=== PATIENT | male | born 1960 | race Caucasian/White ===

== ENCOUNTER 2016-07-09 21:47 | Inpatient (IN) | payer OTHER ==
[2016-07-09] MEDS ORDERED: HYDROmorphONE/DILAUDID 1 MG/ML SYR ONE (21:58)
[2016-07-09] MEDS ORDERED: HYDROmorphONE/DILAUDID 1 MG/ML SYR IVP ONE ×3 (22:04→23:31)
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
[2016-07-09] MEDS ORDERED: NS 1,000 ML IV ONE ×2 (22:26→23:30)
[2016-07-09] MEDS ORDERED: ONDANSETRON 4 MG/2 ML VIAL IVP ONE (22:26)
[2016-07-09 22:31] LABS: % IMMATURE GRANULYOCYTES 0.4 % (0.0-1.1); ABSOLUTE IMMATURE GRANULOCYTES 0.02 10^3/uL (0.00-0.10); ADD DIFF? NO; ADD MORPH? NO; ADD SCAN? NO; ATYPICAL LYMPHOCYTE FLAG 10 (0-99); FRAGMENT RBC FLAG 0 (0-99); HEMATOCRIT 38.7 % (40.0-51.0); HEMOGLOBIN 13.9 g/dL (13.7-17.5); LEFT SHIFT FLG 0 (0-99); LIPEMIA HEMOLYSIS FLAG 90 (0-99); MEAN CELL HEMOGLOBIN 29.3 pg (27.9-34.1); MEAN CELL HEMOGLOBIN CONCENTR. 35.9 g/dL (32.4-36.7); MEAN CELL VOLUME 81.6 fL (81.5-99.8); MEAN PLATELET VOLUME 9.5 fL (8.7-11.7); PLATELET CLUMPS FLAG 10 (0-99); PLATELET COUNT 262 10^3/uL (150-400); RED BLOOD CELL COUNT 4.74 10^6/uL (4.40-6.38); RED CELL DISTRIBUTION WIDTH 13.7 % (11.5-15.2)
[2016-07-09 22:39] LABS: ALANINE AMINOTRANSFERASE 40 IU/L (21-72); ALBUMIN 3.8 g/dL (3.5-5.0); ALKALINE PHOSPHATASE 71 IU/L (38-126); ANION GAP 10 mEq/L (8-16); ASPARTATE AMINOTRANSFERASE 26 IU/L (17-59); BILIRUBIN,TOTAL 0.5 mg/dL (0.1-1.4); BILIRUBIN-CONJUGATED 0.4 mg/dL (0.0-0.5); BILIRUBIN-UNCONJUGATED 0.1 mg/dL (0.0-1.1); CALCIUM 9.3 mg/dL (8.5-10.4); CARBON DIOXIDE 20 mEq/l (22-31); CHLORIDE 104 mEq/L (97-110); CREATININE 0.8 mg/dL (0.7-1.3); GLOMERULAR FILTRATION RATE > 60; GLUCOSE 109 mg/dL (70-100); POTASSIUM 3.8 mEq/L (3.5-5.2); SODIUM 134 mEq/L (134-144); TOTAL PROTEIN 6.4 g/dL (6.3-8.2)
[2016-07-09 22:40] LABS: INR 1.09 (0.83-1.16)
[2016-07-09 22:41] LABS: APTT 29.2 SEC (23.0-38.0)
[2016-07-09] MEDS ORDERED: IOPAMIDOL (ISOVUE-300) 100 ML BTL ONE (22:43)
[2016-07-09 22:50] LABS: TROPONIN I < 0.012 ng/mL (0-0.034)
[2016-07-09 22:59] LABS: COLOR YELLOW; LEUKOCYTE ESTERASE,URINE NEGATIVE (NEGATIVE); NITRITE,URINE NEGATIVE (NEGATIVE)
--- NOTE | 2016-07-09 23:04 | CPEKG ---
Heart Rate: 81 RR Interval: 741 P-R Interval: 176 QRSD Interval: 106 QT Interval: 384 QTC Interval: 446 P [place]: 69 QRS [place]: 50 T Wave [place]: 51 EKG Severity - ABNORMAL ECG - EKG Impression: SINUS RHYTHM EKG Impression: INCOMPLETE RIGHT BUNDLE BRANCH BLOCK EKG Impression: BORDERLINE ST ELEVATION, INFERIOR LEADS Electronically Signed By: Enrike Sterling 10-Jul-2016 06:55:03
[2016-07-09] MEDS ORDERED: LORazepam 2 MG/ML INJ IVP ONE (23:47)
[2016-07-10] MEDS ORDERED: KETOROLAC 30 MG/1 ML SDV ONE (00:20)
[2016-07-10] MEDS ORDERED: KETOROLAC 30 MG/1 ML SDV IVP ONE (00:37)
[2016-07-10] MEDS ORDERED: ONDANSETRON 4 MG/2 ML VIAL IVP PRN (00:38)
[2016-07-10] MEDS ORDERED: LORazepam 2 MG/ML INJ IVP PRN (00:38)
[2016-07-10] MEDS ORDERED: D5W 1/2 NS W/ 20 KCl/L 1,000 ML IV SCH (00:45)
--- NOTE | 2016-07-10 01:04 | GHP ---
[f rep st] HISTORY AND PHYSICAL DATE OF ADMISSION: 07/09/2016 REFERRING PHYSICIAN: Enrike Sterling MD REASON FOR ADMISSION: Small-bowel obstruction. HISTORY OF PRESENT ILLNESS: A 55-year-old male with a significant history of a small-bowel obstruct ion, status post a small-bowel resection. The patient also has a history of diverticulitis, with a prior pelvic abscess formation, and a superior mesenteric artery stent placement for possible SMA di ssection. The patient has been doing well in the outpatient setting. He has been sober from his al cohol abuse for many months, and has been able to regain significant weight, having regular bowel mo vements, with a good appetite. Hist last bowel movements were earlier today. He presents to the em ergency room with sudden onset of crampy abdominal pain starting at 8 o'clock, reminiscent of his pr ior small-bowel obstruction, and significant nausea without vomiting. No fevers or chills. No void ing complaints. PAST MEDICAL HISTORY: Alcohol abuse, SMA occlusion, status post stent placement, hypertension, dive rticulitis. PAST SURGICAL HISTORY: Multiple exploratory laparotomies related to small-bowel obstruction, anasto motic leak and re-resection, and left wrist tendon laceration repair. MEDICATIONS: Lisinopril, Wellbutrin. ALLERGIES: No known drug allergies. SOCIAL HISTORY: Prior alcohol abuse, none times multiple months. No current tobacco. The patient is disabled. He is no longer homeless. FAMILY HISTORY: Unremarkable. REVIEW OF SYSTEMS: A negative 10-point review, except recurrent active GI complaints. PHYSICAL EXAMINATION: VITAL SIGNS: Temperature 36.6, blood pressure 138/100, pulse 86, respiration s 20. GENERAL APPEARANCE: The patient is alert, appropriate, comfortable at present time. EYES: Anicteric. LYMPH: No cervical or supraclavicular lymphadenopathy. HEART: Regular without murmurs . LUNGS: Clear bilaterally. ABDOMEN: Distended, soft, minimal tenderness. Well-healed midline l aparotomy without hernias. No abdominal erythema. EXTREMITIES: Unremarkable. NEUROLOGIC: Exam u nremarkable. LABORATORY DATA: White count 5, hemoglobin 14, platelets of 260. Electrolytes within reference ran ge. INR 1.0. CT abdomen and pelvis: Images directly reviewed on PACS and with on-call radiologist significant fo r a small-bowel obstruction. There is diffuse air throughout the colon. There is a questionable me senteric venous air. There is no free fluid and no free air. IMPRESSION: 1. Small-bowel obstruction, likely adhesive in nature. 2. Mesenteric vein air, without clinical evidence of sepsis or immediate concern for bowel ischemia . 3. History of alcoholism and homelessness, both resolved. PLAN: Nasogastric tube has been placed. Continue overnight decompression with serial abdominal exa ms and imaging studies. If patient continues to clinically deteriorate or fails to improve in the n ext 48-72 hours, consideration for re-exploration to be entertained at that time. The patient has n o evidence of vascular mesenteric ischemia. /[id number]/MODL
[2016-07-10] MEDS: HYDROmorphONE/DILAUDID 1 MG/ML SYR IVP PRN ×2 (01:34→08:24)
[2016-07-10] MEDS: KETOROLAC 15 MG/1 ML SDV IVP SCH ×2 (05:06→11:30)
[2016-07-10 05:11] VITALS: O2SAT 93
[2016-07-10 05:28] LABS: % IMMATURE GRANULYOCYTES 0.5 % (0.0-1.1); ABSOLUTE IMMATURE GRANULOCYTES 0.06 10^3/uL (0.00-0.10); ADD DIFF? NO; ADD MORPH? NO; ADD SCAN? NO; ATYPICAL LYMPHOCYTE FLAG 0 (0-99); FRAGMENT RBC FLAG 0 (0-99); HEMATOCRIT 42.6 % (40.0-51.0); HEMOGLOBIN 14.5 g/dL (13.7-17.5); LEFT SHIFT FLG 0 (0-99); LIPEMIA HEMOLYSIS FLAG 90 (0-99); MEAN CELL HEMOGLOBIN 28.9 pg (27.9-34.1); MEAN CELL VOLUME 84.9 fL (81.5-99.8); MEAN PLATELET VOLUME 9.4 fL (8.7-11.7); PLATELET CLUMPS FLAG 0 (0-99); PLATELET COUNT 217 10^3/uL (150-400); RED BLOOD CELL COUNT 5.02 10^6/uL (4.40-6.38)
[2016-07-10 05:41] LABS: ANION GAP 7 mEq/L (8-16); CALCIUM 8.4 mg/dL (8.5-10.4); CARBON DIOXIDE 21 mEq/l (22-31); CHLORIDE 107 mEq/L (97-110); CREATININE 0.7 mg/dL (0.7-1.3); GLOMERULAR FILTRATION RATE > 60; GLUCOSE 97 mg/dL (70-100); SODIUM 135 mEq/L (134-144)
[2016-07-10] MEDS ORDERED: LISINOPRIL 10 MG TAB PO SCH (09:00)
--- NOTE | 2016-07-10 10:22 | SOAPPROG ---
SOAP Progress Note Assessment/Plan: Assessment:states that pain is markedly better since NG placement. no further flatus or BM since admission. no current pain or nausea. afebrile. vss. comfortable. abd soft, min distended. no tenderness. NG thinner gastric. KUB with dilated SB and air/stool throughout colon. psbo - cont supportive care , more aggressive NG mgmnt, IVF. mesenteric air concerning on CT with mild leucocytosis. Low clinical concern for bowel ischemia at this time given benign abdominal findings. may obtain GG SBFT if any concerns on GI continuity tomorrow. Plan: 07/10/16 10:19 Objective: Vital Signs Temp Pulse Resp BP Pulse Ox 36.6 C 118 H 16 121/82 H 93 07/10/16 08:00 07/10/16 08:00 07/10/16 08:00 07/10/16 08:00 07/10/16 08:00 Laboratory Results 07/10/16 05:05 07/10/16 05:05 07/09/16 07/10/16 07/11/16 05:59 05:59 05:59 Intake Total 2250 Output Total 1200 Balance 1050 PT 14.0 SEC (12.0-15.0) 07/09/16 22:00 INR 1.09 (0.83-1.16) 07/09/16 22:00 ICD10 Worksheet Patient Problems: Problems Problem Status Onset SBO (small bowel obstruction) Acute Bipolar affective disorder, current episode depression Active Cannabis abuse Active Drug induced mood disorder Active Abdominal pain Acute Acute encephalopathy Acute Alcohol dependence Acute Alcohol intoxication Acute Alcohol withdrawal Acute Alcohol withdrawal delirium, acute, hyperactive Acute Chronic abdominal pain Acute Delirium tremens Acute Dyspnea Acute Pneumatosis intestinalis Acute Seizure Acute Small bowel obstruction Acute Status epilepticus Acute Superior mesenteric artery thrombosis Acute
[2016-07-10 11:02] VITALS: BP 102/63; PULSE 104; RESP 18; TEMP 98.2
--- NOTE | 2016-07-13 09:49 | GDS ---
[f rep st] DISCHARGE SUMMARY AMA Discharge Summary REASON FOR ADMISSION: Small bowel obstruction. HOSPITAL COURSE: A 55-year-old male with a complicated medical history. He was admitted with an adhesive small-bowel obstruction. A nasogastric tube was placed. The patient opted to leave AMA the following day; he was noted to still have signs and symptoms of obstruction. Of concern were findings of mesenteric venous gas on his initial CT imaging. Clinically, the patient had no evidence of bowel ischemia. He self discontinued his IV and nasogastric tube , and left against medical advice the following day after admission. He was aware of the potential risk for worsening pain, bowel ischemia, and peritonitis. He was to resume all pre-hospital medications. He was given no new prescriptions. No followup arrangements were made. /[id number]/MODL MTDD
== END 2016-07-10 12:00 | disposition left against medical advice (07) | DRG 390 ==
LOC: EDUNIT# → F3E 07-10 01:04
PROVIDERS: ADMIT Surgery; ATTEND Surgery
PROC: 0D9670Z Drainage of Stomach with Drainage Device, Via Natural or Artificial Opening (ICD-10-PCS; principal; 2016-07-09)
DX: K56.5 Intestinal adhesions [bands] with obstruction (postinfection) (principal); K57.30 Diverticulosis of large intestine without perforation or abscess without bleeding; I10 Essential (primary) hypertension; F31.9 Bipolar disorder, unspecified; J44.9 Chronic obstructive pulmonary disease, unspecified
CPT/HCPCS: J1170; J1885; J2060; J2405; Q9967

== ENCOUNTER 2016-07-10 17:32 | Emergency (ER) | payer OTHER ==
[2016-07-10 17:36] VITALS: BP 107/69; PULSE 116; RESP 20; TEMP 98.1; O2SAT 96
[2016-07-10] MEDS ORDERED: ONDANSETRON 4 MG/2 ML VIAL IVP ONE (17:51)
[2016-07-10] MEDS ORDERED: fentaNYL 100 MCG/2 ML INJ IVP ONE (17:51)
[2016-07-10] MEDS ORDERED: NS 1,000 ML IV ONE (17:51)
[2016-07-10 17:57] LABS: % IMMATURE GRANULYOCYTES 0.1 % (0.0-1.1); ABSOLUTE IMMATURE GRANULOCYTES 0.01 10^3/uL (0.00-0.10); ADD DIFF? NO; ADD MORPH? NO; ADD SCAN? NO; ATYPICAL LYMPHOCYTE FLAG 0 (0-99); FRAGMENT RBC FLAG 0 (0-99); HEMATOCRIT 42.2 % (40.0-51.0); HEMOGLOBIN 14.4 g/dL (13.7-17.5); LEFT SHIFT FLG 0 (0-99); LIPEMIA HEMOLYSIS FLAG 90 (0-99); MEAN CELL HEMOGLOBIN 29.1 pg (27.9-34.1); MEAN CELL HEMOGLOBIN CONCENTR. 34.1 g/dL (32.4-36.7); MEAN CELL VOLUME 85.3 fL (81.5-99.8); MEAN PLATELET VOLUME 9.1 fL (8.7-11.7); PLATELET CLUMPS FLAG 10 (0-99); PLATELET COUNT 210 10^3/uL (150-400); RED BLOOD CELL COUNT 4.95 10^6/uL (4.40-6.38); RED CELL DISTRIBUTION WIDTH 14.1 % (11.5-15.2)
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
[2016-07-10] MEDS ORDERED: DEXAMETHASONE 4 MG TAB PO ONE (18:05)
[2016-07-10 18:09] LABS: ALANINE AMINOTRANSFERASE 36 IU/L (21-72); ALBUMIN 3.7 g/dL (3.5-5.0); ALKALINE PHOSPHATASE 57 IU/L (38-126); ANION GAP 8 mEq/L (8-16); ASPARTATE AMINOTRANSFERASE 23 IU/L (17-59); BILIRUBIN,TOTAL 1.1 mg/dL (0.1-1.4); BILIRUBIN-CONJUGATED 0.2 mg/dL (0.0-0.5); BILIRUBIN-UNCONJUGATED 0.9 mg/dL (0.0-1.1); CALCIUM 8.8 mg/dL (8.5-10.4); CARBON DIOXIDE 23 mEq/l (22-31); CHLORIDE 103 mEq/L (97-110); CREATININE 0.9 mg/dL (0.7-1.3); GLOMERULAR FILTRATION RATE > 60; GLUCOSE 90 mg/dL (70-100); SODIUM 134 mEq/L (134-144); TOTAL PROTEIN 6.1 g/dL (6.3-8.2)
[2016-07-10] MEDS ORDERED: HYDROmorphONE/DILAUDID 1 MG/ML SYR ONE (19:00)
[2016-07-10] MEDS ORDERED: HYDROmorphONE/DILAUDID 1 MG/ML SYR IVP ONE (19:05)
--- NOTE | 2016-07-10 21:01 | GCON ---
[f rep st] CONSULTATION REFERRING PHYSICIAN: LEV RODAS REASON FOR CONSULTATION: I was asked to see the patient by the emergency room physician's legal executive assistant in regard to abdominal pain. HISTORY OF PRESENT ILLNESS: This 55-year-old male is known to me from a previous admission last yea r. He came to the hospital yesterday and was admitted overnight for a possible small bowel obstruct ion, abdominal pain. An NG was placed and it was in place this morning. The initial plan by his [facility] physician was to continue NG suction and observe him for improvement, but the patient was un happy with this plan, removed the NG tube and left the hospital. He comes in tonight concerned he may be getting worse. He has had no further vomiting, has passed s ome flatus today, although no stool. PAST MEDICAL HISTORY: Relevant for bipolar disorder, marijuana use, heavy alcohol use with DTs duri ng 1 admission here, but he has been dry for many months. He has a seizure disorder. 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 IMAGING: Currently, an abdominal x-ray tonight shows 1 loop of air-fluid levels but gas throughout the colon. LABORATORY: Exams tonight show white count of 8000, normal electrolytes, normal lipase. Coags were normal yesterday. PHYSICAL EXAMINATION: GENERAL: Agitated male stating he is worried he is getting worse. He has tillman d some mild pain, but it is not intolerable. No vomiting today, as mentioned above. HEENT: No scl eral icterus. LUNGS: Clear. HEART: Normal S1, S2 without murmur. No tachycardia. ABDOMEN: Sof t, benign. No guarding, no masses, no pain. ASSESSMENT: The patient does not have an acute abdomen and really not much abdominal pain. I think part of his issues are his anxiety problems. RECOMMENDATIONS: I suggested he try some clear liquids and go home if it does not exacerbate his pa in. He is agitated with this and states he wants to leave immediately. I did get him to drink some apple juice and stated that we would send him home if he tolerates this. I explained to him if I w ere to admit him, it would be for observation, no NG tube and no narcotics. /[id number]/MODL
== END 2016-07-10 20:18 | disposition home or self-care (01) ==
DX: K56.60 Unspecified intestinal obstruction (principal); I10 Essential (primary) hypertension; J44.9 Chronic obstructive pulmonary disease, unspecified; F17.200 Nicotine dependence, unspecified, uncomplicated
CPT/HCPCS: 74000; 96361; 96374; 96375; 99284; J1170; J2405; J3010

== ENCOUNTER 2016-07-12 19:08 | Inpatient (IN) | payer OTHER ==
--- NOTE | 2016-07-12 19:38 | EDPHY ---
H & P Time Seen by Provider: 07/12/16 19:34 HPI/ROS: CHIEF COMPLAINT: Abdominal pain HISTORY OF PRESENT ILLNESS: This patient is a 55 year old male with recent diagnosis of small bowel obstruction who presents to the Emergency Department complaining of worsening generalized abdominal pain beginning two days prior to arrival. He was seen in the ED when symptoms first presented and was diagnosed with a small bowel obstruction at that time, though he refused admission. He has spoken with staff at Dr. Rosas' office who recommended that he proceed with admission, prompting him to return to the ED today. He describes his pain as waxing and waning with mild alleviation using Ibuprofen at home. He states that he had tomato soup for lunch which precipitated an exacerbation of the pain since 1300 today. He is able to pass gas. His last bowel movement was yesterday. He denies nausea, vomiting, fever or chills, or additional complaints. He has a history of multiple visits to the ED and hospital admissions in fall 2015 for what was initially a superior mesenteric artery occlusion requiring stent placement and subsequent laparotomy with bowel resection by Dr. Rosas. REVIEW OF SYSTEMS: Constitutional: No fever, no chills Eyes: No visual changes ENT: No sore throat Respiratory: No cough, no shortness of breath Cardiac: No chest pain Gastrointestinal: As in HPI Genitourinary: No hematuria, no dysuria Musculoskeletal: No leg pain or swelling Skin: No rash Neurological: No headache, no numbness, no weakness Psychiatric: No depression Past Medical/Surgical History: Prior medical records from visit on 07/10/2016 reviewed by myself. 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 Social History: Smokes daily. History of ETOH abuse. Smoking Status: Current every day smoker Physical Exam: General Appearance: Alert, mild distress, appears in pain Eyes: Pupils equal and round, no conjunctival pallor or injection ENT, Mouth: Mucous membranes moist Neck: Normal inspection Respiratory: Lungs are clear to auscultation Cardiovascular: Regular rate and rhythm Gastrointestinal: Abdomen is soft with diffuse tenderness, normal bowel sounds Neurological: A&O, nonfocal, normal gait Skin: Warm and dry, no rash Extremities: Nontender, no pedal edema Psychiatric: Mood and affect normal Constitutional: Initial Vital Signs Temperature (C) 36.4 C 07/12/16 19:10 Heart Rate 96 07/12/16 19:10 Respiratory Rate 16 07/12/16 19:10 Blood Pressure 138/88 H 07/12/16 19:10 O2 Sat (%) 97 07/12/16 19:10 O2 Delivery Mode Room Air Allergies/Adverse Reactions: No Known Allergies Allergy (Verified 07/10/16 17:32) Home Medications: Medication Instructions Recorded Lisinopril [Zestril 10 mg (*)] 10 mg PO DAILY 12/26/15 Cyclobenzaprine [Flexeril 10 MG 10 mg PO TID PRN 07/10/16 (*)] Ibuprofen [Motrin (*)] 200 mg PO Q6 PRN 07/10/16 buPROPion XL [Wellbutrin Xl] 150 mg PO DAILY 07/10/16 Medical Decision Making - Diagnostics Imaging: I viewed and interpreted images myself (Small bowel obstruction.) ED Course/Re-evaluation: This is a 55-year-old male with complex GI history who presents on a subsequent visit for small bowel obstruction. He was first seen on Monday, two days prior to arrival, for generalized abdominal pain and was diagnosed with SBO via CT at that time. He has been in contact with staff at Dr. Rosas's practice who suggest he present today. He has a diffusely tender abdomen on exam with normal bowel sounds. He appears uncomfortable secondary to pain. Will proceed with abdominal x-ray. If x-ray confirms persistent SBO, will proceed with NG tube and consultation with surgery. The patient is agreeable to this plan. IV established. 1L IV NS and 4mg IV Zofran administered. 1999: Abdominal x-ray reviewed by myself is significant for small bowel obstruction. NG tube ordered. 2001: Consultation with Dr. Colten Freitas, on-call general surgeon, who will visit the patient in the ED. 2011: Consultation with Dr. Alpesh Jin, hospitalist, who accepts admission. Differential Diagnosis: The differential diagnosis for the patient's abdominal pain included but was not limited to small bowel obstruction, hernias, testicular torsion, gastritis, and urinary tract infection. - Data Points Laboratory Results: Laboratory Results 07/12/16 19:38 07/12/16 19:38 07/12/16 07/12/16 19:38 19:38 WBC 7.76 10^3/uL 10^3/uL (3.80-9.50) RBC 4.77 10^6/uL 10^6/uL (4.40-6.38) Hgb 13.9 g/dL g/dL (13.7-17.5) Hct 40.0 % % (40.0-51.0) MCV 83.9 fL fL (81.5-99.8) MCH 29.1 pg pg (27.9-34.1) MCHC 34.8 g/dL g/dL (32.4-36.7) RDW 13.5 % % (11.5-15.2) Plt Count 228 10^3/uL 10^3/uL (150-400) MPV 9.1 fL fL (8.7-11.7) Neut % (Auto) 67.4 % % (39.3-74.2) Lymph % (Auto) 21.4 % % (15.0-45.0) Davidson % (Auto) 8.4 % % (4.5-13.0) Eos % (Auto) 2.2 % % (0.6-7.6) Baso % (Auto) 0.3 % % (0.3-1.7) Nucleat RBC Rel Count 0.0 % % (0.0-0.2) Absolute Neuts (auto) 5.24 10^3/uL 10^3/uL (1.70-6.50) Absolute Lymphs (auto) 1.66 10^3/uL 10^3/uL (1.00-3.00) Absolute Monos (auto) 0.65 10^3/uL 10^3/uL (0.30-0.80) Absolute Eos (auto) 0.17 10^3/uL 10^3/uL (0.03-0.40) Absolute Basos (auto) 0.02 10^3/uL 10^3/uL (0.02-0.10) Absolute Nucleated RBC 0.00 10^3/uL 10^3/uL (0-0.01) Immature Gran % 0.3 % % (0.0-1.1) Immature Gran # 0.02 10^3/uL 10^3/uL (0.00-0.10) Sodium 134 mEq/L mEq/L (134-144) Potassium 4.0 mEq/L mEq/L (3.5-5.2) Chloride 101 mEq/L mEq/L (97-110) Carbon Dioxide 23 mEq/l mEq/l (22-31) Anion Gap 10 mEq/L mEq/L (8-16) BUN 8 mg/dL mg/dL (7-23) Creatinine 0.8 mg/dL mg/dL (0.7-1.3) Estimated GFR > 60 Glucose 101 mg/dL H mg/dL (70-100) Calcium 9.4 mg/dL mg/dL (8.5-10.4) Total Bilirubin 0.8 mg/dL mg/dL (0.1-1.4) Conjugated Bilirubin 0.3 mg/dL mg/dL (0.0-0.5) Unconjugated Bilirubin 0.5 mg/dL mg/dL (0.0-1.1) AST 24 IU/L IU/L (17-59) ALT 35 IU/L IU/L (21-72) Alkaline Phosphatase 68 IU/L IU/L (38-126) Total Protein 6.8 g/dL g/dL (6.3-8.2) Albumin 4.0 g/dL g/dL (3.5-5.0) Lipase 16.0 IU/L L IU/L (23-300) Medications Given: Discontinued Medications Sodium Chloride (Ns) 1,000 mls @ 0 mls/hr IV ONCE ONE PRN Reason: Wide Open Stop: 07/12/16 20:04 Last Admin: 07/12/16 20:17 Dose: 1,000 mls Ondansetron HCl (Zofran) 4 mg IVP EDNOW ONE Stop: 07/12/16 20:01 Last Admin: 07/12/16 20:09 Dose: 4 mg Departure - Departure Disposition: [facility] Acute Clinical Impression: Small bowel obstruction Condition: Fair Referrals: Scott Pedersen MD [Primary Care Provider] - As per Instructions Report Scribed for: Syl Wu Report Scribed by: Magalys Stahl Date of Report: 07/12/16 Time of Report: 19:37 Physician Review and Approval Statement: 07/12/16 19:37 Portions of this note were transcribed by a center medical specialist. I personally performed a history, physical exam, medical decision making, and confirmed accuracy of information the transcribed note.
[2016-07-12 19:46] LABS: % IMMATURE GRANULYOCYTES 0.3 % (0.0-1.1); ABSOLUTE IMMATURE GRANULOCYTES 0.02 10^3/uL (0.00-0.10); ADD DIFF? NO; ADD MORPH? NO; ADD SCAN? NO; ATYPICAL LYMPHOCYTE FLAG 10 (0-99); FRAGMENT RBC FLAG 0 (0-99); HEMOGLOBIN 13.9 g/dL (13.7-17.5); LEFT SHIFT FLG 0 (0-99); LIPEMIA HEMOLYSIS FLAG 90 (0-99); MEAN CELL HEMOGLOBIN 29.1 pg (27.9-34.1); MEAN CELL HEMOGLOBIN CONCENTR. 34.8 g/dL (32.4-36.7); MEAN CELL VOLUME 83.9 fL (81.5-99.8); MEAN PLATELET VOLUME 9.1 fL (8.7-11.7); PLATELET CLUMPS FLAG 10 (0-99); PLATELET COUNT 228 10^3/uL (150-400); RED BLOOD CELL COUNT 4.77 10^6/uL (4.40-6.38); RED CELL DISTRIBUTION WIDTH 13.5 % (11.5-15.2)
[2016-07-12 19:59] LABS: ALANINE AMINOTRANSFERASE 35 IU/L (21-72); ALKALINE PHOSPHATASE 68 IU/L (38-126); ANION GAP 10 mEq/L (8-16); ASPARTATE AMINOTRANSFERASE 24 IU/L (17-59); BILIRUBIN,TOTAL 0.8 mg/dL (0.1-1.4); BILIRUBIN-CONJUGATED 0.3 mg/dL (0.0-0.5); BILIRUBIN-UNCONJUGATED 0.5 mg/dL (0.0-1.1); CALCIUM 9.4 mg/dL (8.5-10.4); CARBON DIOXIDE 23 mEq/l (22-31); CHLORIDE 101 mEq/L (97-110); CREATININE 0.8 mg/dL (0.7-1.3); GLOMERULAR FILTRATION RATE > 60; GLUCOSE 101 mg/dL (70-100); SODIUM 134 mEq/L (134-144); TOTAL PROTEIN 6.8 g/dL (6.3-8.2)
[2016-07-12] MEDS ORDERED: ONDANSETRON 4 MG/2 ML VIAL IVP ONE (20:00)
[2016-07-12] MEDS ORDERED: NS 1,000 ML IV ONE (20:03)
[2016-07-12] MEDS ORDERED: BENZOCAINE UNIT DOSE SPRAY HURRICAINE MM ONE (20:14)
[2016-07-12] MEDS ORDERED: HYDROmorphONE/DILAUDID 1 MG/ML SYR IVP ONE (20:16)
[2016-07-12] MEDS ORDERED: METOCLOPRAMIDE 10 MG/2 ML VIAL IVP PRN (21:19)
[2016-07-12] MEDS ORDERED: ONDANSETRON 4 MG/2 ML VIAL IVP PRN (21:19)
[2016-07-12] MEDS ORDERED: HYDROmorphONE/DILAUDID 1 MG/ML SYR IVP PRN (21:19)
--- NOTE | 2016-07-12 22:14 | GHP ---
[f rep st] HISTORY AND PHYSICAL DATE OF ADMISSION: 07/12/2016 HISTORY OF PRESENT ILLNESS: The patient is a pleasant 55-year-old gentleman with a history of alcoh olism in remission as well as abdominal surgery, who presents to the hospital today for the 3rd time in 4 days with abdominal pain. He was seen here and thought to be admitted on the but renetta de jesus did not want to stay. He has a history of SMA stent as well as abdominal surgery. At that time , he had some small bowel necrosis necessitating a small-bowel resection. He has had multiple small bowel obstructions. He was seen here on the with abdominal pain. He had an abdominal CAT and seen by Shant Delaney and ultimately discharged. He may have left against medical advice and then al so seen on the later in the day with the same thing and then he returns today with similar symp toms. He has not had a bowel movement since yesterday morning. He has had some nausea but no vomit ing. He has not had fever or chills. He has been really not able to eat other than some soup. Tirso kovacs in the ER today demonstrated continued small bowel obstruction. He has not had fever or chills. Had nausea and no vomiting. No diarrhea. Last BM was yesterday morning. He has been off alcohol f or a number of months. REVIEW OF SYSTEMS: Complete 10-point review of systems conducted, negative except as noted in the H PI. PAST MEDICAL HISTORY: 1. Alcoholism in remission. 2. History of SMA occlusion with stent. 3. Small bowel resection. 4. Small bowel obstruction. 5. Possible bipolar. 6. Hypertension. ALLERGIES: No known drug allergies. MEDICATIONS: Lisinopril, ibuprofen, cyclobenzaprine and bupropion. SOCIAL HISTORY: Alcohol as in the HPI. Is a nonsmoker. Lives locally. FAMILY HISTORY: Reviewed and unremarkable. PHYSICAL EXAMINATION: VITAL SIGNS: Blood pressure 138/88, pulse 96, breathing 16 times a minute, 9 7% on room air. GENERAL: No acute distress. HEENT: Sclerae anicteric. Oropharynx clear. Mucous membranes are moist. NECK: Supple without lymphadenopathy or JVD. LUNGS: Clear to auscultation bilaterally. HEART: S1, S2. Not tachycardic. ABDOMEN: Soft. Bowel sounds are present and hyper active. There is no rebound or guarding. There is an NG tube in place. LOWER EXTREMITIES: No susan ma. Calves nontender. SKIN: Without rash. NEUROLOGIC: Nonfocal. LABS: White count 7.6, hematocrit 40, platelets are 228,000. INR was 1.09 a couple of days ago. V enous lactate yesterday was 1.6. Sodium 134, potassium 4.0, chloride 101, bicarb 23, BUN 8, creatin ine 0.8, glucose 101. LFTs normal. Lipase low at 16. UA a couple of days ago was negative. Abdom inal film interpreted by me, shows air-fluid levels consistent with small-bowel obstruction. He had a CT scan last performed on the at 10:30 p.m. showing high-grade proximal small-bowel obstruct ion with multiple dilated loops of jejunum with mild constipation. I have discussed the case with Myrna Wu. ASSESSMENT AND PLAN: This is a pleasant 55-year-old gentleman with small-bowel obstruction. 1. Small-bowel obstruction. This has failed outpatient management. NG tube, n.p.o., IV fluids, IV antiemetics and IV narcotics. He does not have peritoneal signs at this time. If he does become t achycardic or febrile I think venous lactate and other evaluation would be important. He will be se en by General surgery. We will follow him. It sounds like Mekhi Rosas did his surgeries in 2015. 2. Alcoholism. He has been sober for a number of months. Patient is forthcoming. 3. History of SMA stent. The patient does not have peritoneal signs consistent with intestinal isc hemia. 4. Prophylaxis. Pharmacologic prophylaxis indicated. DISPOSITION: Inpatient status. /[id number]/MODL
[2016-07-12] MEDS ORDERED: LORazepam 2 MG/ML INJ IVP SCH (22:15)
[2016-07-12] MEDS: HYDROmorphONE/DILAUDID 1 MG/ML SYR IVP PRN (22:32)
--- NOTE | 2016-07-12 23:48 | GCON ---
[f rep st] CONSULTATION DATE OF CONSULTATION: 07/12/2016 CHIEF COMPLAINT: Abdominal pain. HISTORY OF PRESENT ILLNESS: This is a 55-year-old male, well known to me and my partner, Dr. Rosas. Briefly, has had a prolonged hospital course since late September. It started back with perforated d iverticulitis where he initially had a percutaneous drain. He was subsequently discharged home from this, only to re-present back with a small bowel obstruction. He had a protracted hospital course at that point in time, requiring multiple operations, multiple small-bowel resections and an open ab domen for which he spent most of the time in the intensive care unit. At any rate, the patient dayton muller did well, was closed and sent home after his long hospital stay. Since that time, he states that he has never really felt well. He has been in contact with Dr. Arnulfo cline and his team via phone, but it does not appear that he has been seen much, if at all, in the clini c. At any rate, over the past few weeks, it sounds like the abdominal pain has been getting worse. He has been evaluated multiple times in the emergency department and did actually stay overnight th is past weekend for 1 night, but chose to leave due to personal reasons. During that time, he state s the abdominal pain has been getting worse to the point where he decided to come back into the hosp ital today after discussing it with Dr. Ralph Knapp' PA. At any rate, he states the pain is getting worse. It is crampy in nature. It tends to be colicky, worse at times, better at others. He does still state that he is taking in p.o. and tolerated juice throughout the day. He had some soup for lunch. He continues to pass flatus and had his last darcy l movement yesterday. Other than the above, the patient states that the pain is worse, does not marlene lly state that it is any 1 side on his abdomen, but does endorse that it is probably worse on the le ft side than the right. He denies having any fevers or chills. PAST MEDICAL HISTORY: Significant for alcohol abuse and diverticulitis. PAST SURGICAL HISTORY: Perc drain for diverticulitis, and multiple bowel resections, and an open ab domen for small bowel obstruction. REVIEW OF SYSTEMS: A full 10-point review was performed and unless explicitly stated above, is othe rwise negative. SOCIAL: States that he is currently not homeless, and that he has not used alcohol in a few months. He denies any illicit drug use. PHYSICAL EXAM: VITAL SIGNS: Temperature 36.5, blood pressure 130/80, and heart rate is 87. He is 95% on room air. GENERAL: He is alert and oriented, in no acute distress. CARDIOVASCULAR: He has a regular rate and rhythm. LUNGS: Clear. ABDOMEN: Soft, nondistended, nontender with good bowel sounds. He is minimally tender in the left lower quadrant. I do not see any rebound tenderness or guarding. EXTREMITIES: Warm and well perfused. LABS: White blood cell count normal at 7, H and H 14 and 40, chemistries are relatively unremarkabl e. The plain film today shows persistent small bowel obstruction consistent with a CT scan that was done 3 days ago. I do not appreciate any pneumoperitoneum. ASSESSMENT AND PLAN: A 55-year-old male with complex past surgical history with small-bowel obstruc tion. I discussed with the patient the findings today and stated that he is likely not going to get better without at least a few night hospital stay for decompression, IV fluids and rehydration. He is amenable to this. 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 I appreciate medical admission. I told the patient that the nasogastric tube decompression will be helpful. We will continue to re- evaluate, should he need surgery in the meantime. /[id number]/MODL
[2016-07-13] MEDS: HYDROmorphONE/DILAUDID 1 MG/ML SYR IVP PRN ×8 (02:14→23:11)
[2016-07-13] MEDS: LORazepam 2 MG/ML INJ IVP PRN ×4 (05:15→19:50)
[2016-07-13 05:29] LABS: ADD DIFF? NO; ADD MORPH? NO; ADD SCAN? NO; ATYPICAL LYMPHOCYTE FLAG 10 (0-99); FRAGMENT RBC FLAG 0 (0-99); HEMATOCRIT 39.7 % (40.0-51.0); HEMOGLOBIN 13.5 g/dL (13.7-17.5); LEFT SHIFT FLG 0 (0-99); LIPEMIA HEMOLYSIS FLAG 90 (0-99); MEAN CELL HEMOGLOBIN 28.6 pg (27.9-34.1); MEAN CELL VOLUME 84.1 fL (81.5-99.8); MEAN PLATELET VOLUME 9.1 fL (8.7-11.7); PLATELET CLUMPS FLAG 0 (0-99); PLATELET COUNT 222 10^3/uL (150-400); RED BLOOD CELL COUNT 4.72 10^6/uL (4.40-6.38); RED CELL DISTRIBUTION WIDTH 13.7 % (11.5-15.2)
[2016-07-13 05:44] LABS: ALANINE AMINOTRANSFERASE 35 IU/L (21-72); ALBUMIN 3.6 g/dL (3.5-5.0); ALKALINE PHOSPHATASE 59 IU/L (38-126); ANION GAP 8 mEq/L (8-16); ASPARTATE AMINOTRANSFERASE 23 IU/L (17-59); BILIRUBIN,TOTAL 0.8 mg/dL (0.1-1.4); CALCIUM 9.2 mg/dL (8.5-10.4); CARBON DIOXIDE 26 mEq/l (22-31); CHLORIDE 102 mEq/L (97-110); CREATININE 0.8 mg/dL (0.7-1.3); GLOMERULAR FILTRATION RATE > 60; GLUCOSE 71 mg/dL (70-100); SODIUM 136 mEq/L (134-144); TOTAL PROTEIN 6.2 g/dL (6.3-8.2)
[2016-07-13] MEDS: ENOXAPARIN 40 MG/0.4 ML SYR SC SCH (07:40)
[2016-07-13] MEDS: NS 1,000 ML IV SCH ×2 (07:40→18:23)
--- NOTE | 2016-07-13 14:58 | HOSPPROG ---
Hospitalist Progress Note Assessment/Plan: # Acute SBO- pt with complicated abdominal history including perforation and abscess from diverticulitis Pt with flatus this am and good bowel sounds- abd xray (personally reviewed and interpreted) air fluid levels visualized oxygen saturations 93% on RA - suspect we may be able to dc NGT and advance slowly - cont NGT- until cleared by surgery - cont prn pain meds - cont IVF while NPO # HTN - normotensive - holding meds # Bipolar - holding meds # proph - lovenox # diet - NPO with NGT # dispo - > 2MN as needs careful monitoring of SBO I have discussed the case with RN - suspect he will be advanced by surgery today Subjective: pain improved - flatus this am no BM Objective: Vital Signs Temp Pulse Resp BP Pulse Ox 36.6 C 78 14 116/76 93 07/13/16 11:06 07/13/16 11:06 07/13/16 11:06 07/13/16 11:06 07/13/16 11:06 Laboratory Results 07/13/16 04:49 07/13/16 04:49 07/12/16 07/13/16 07/14/16 05:59 05:59 05:59 Intake Total 400 Output Total 500 500 Balance -100 -500 - Physical Exam Constitutional: appears nourished Eyes: anicteric sclera Ears, Nose, Mouth, Throat: moist mucous membranes Cardiovascular: regular rate and rhythym Respiratory: no respiratory distress, no rales or rhonchi Gastrointestinal: normoactive bowel sounds, tenderness, No guarding, No rebound Genitourinary: no bladder fullness Skin: warm, normal color Musculoskeletal: No asymmetric calves Neurologic: AAOx3 Psychiatric: interacting appropriately, not anxious Lymph, Heme, Immunologic: no cervical LAD ICD10 Worksheet Patient Problems: Problems Problem Status Onset SBO (small bowel obstruction) Acute Bipolar affective disorder, current episode depression Active Cannabis abuse Active Drug induced mood disorder Active Abdominal pain Acute Acute encephalopathy Acute Alcohol dependence Acute Alcohol intoxication Acute Alcohol withdrawal Acute Alcohol withdrawal delirium, acute, hyperactive Acute Chronic abdominal pain Acute Delirium tremens Acute Dyspnea Acute Pneumatosis intestinalis Acute Seizure Acute Small bowel obstruction Acute Status epilepticus Acute Superior mesenteric artery thrombosis Acute
[2016-07-13] MEDS ORDERED: BISACODYL 10 MG SUPP PR ONE (17:04)
--- NOTE | 2016-07-13 17:04 | SOAPPROG ---
SOAP Progress Note Assessment/Plan: Assessment/Plan: 55 Y M hx of SMA occlusion s/p stent and reopening of stent, now occluded; perforated diverticulitis with IR abscess drainage; SBO s/p laparotomy, peritonitis, open abdomen with re-exploration; now admitted with worsening abdominal pain, anorexia, possible SBO. AXR with loop of bowel suspicious for obstruction. Also, significant stool and gas in colon. Could have aspect of constipation/ileus causing blockage. Cannot r /o element of low grade intestinal ischemia due to SMA occlusion, but patient has been shown to have collaterals in past and stent occlusion is old. Doing better now. More comfortable. NG in place but now clamped and tolerating clears. AXR in am. Dulcolax suppository this evening. Avoid oral laxatives. Continue observation. S: less pain, no nausea, glad he came in and stayed for help (left hospital last weekend) O: alert, nad ng in place, clamped, mmm no wob rrr abd softly bloated, NT, well healed scars, rare BSs 07/13/16 16:59 Objective: Vital Signs Temp Pulse Resp BP Pulse Ox 36.5 C 97 14 136/98 H 92 07/13/16 15:21 07/13/16 15:21 07/13/16 15:21 07/13/16 15:21 07/13/16 15:21 Laboratory Results 07/13/16 04:49 07/13/16 04:49 07/12/16 07/13/16 07/14/16 05:59 05:59 05:59 Intake Total 400 Output Total 500 500 Balance -100 -500 ICD10 Worksheet Patient Problems: Problems Problem Status Onset SBO (small bowel obstruction) Acute Bipolar affective disorder, current episode depression Active Cannabis abuse Active Drug induced mood disorder Active Abdominal pain Acute Acute encephalopathy Acute Alcohol dependence Acute Alcohol intoxication Acute Alcohol withdrawal Acute Alcohol withdrawal delirium, acute, hyperactive Acute Chronic abdominal pain Acute Delirium tremens Acute Dyspnea Acute Pneumatosis intestinalis Acute Seizure Acute Small bowel obstruction Acute Status epilepticus Acute Superior mesenteric artery thrombosis Acute
[2016-07-14] MEDS: HYDROmorphONE/DILAUDID 1 MG/ML SYR IVP PRN ×6 (00:56→10:41)
[2016-07-14] MEDS: LORazepam 2 MG/ML INJ IVP PRN ×7 (01:02→23:50)
[2016-07-14] MEDS: NS 1,000 ML IV SCH ×2 (02:13→14:40)
[2016-07-14 05:04] LABS: HEMATOCRIT 40.6 % (40.0-51.0); MEAN CELL HEMOGLOBIN CONCENTR. 34.5 g/dL (32.4-36.7); MEAN CELL VOLUME 84.2 fL (81.5-99.8); RED BLOOD CELL COUNT 4.82 10^6/uL (4.40-6.38); RED CELL DISTRIBUTION WIDTH 13.4 % (11.5-15.2)
[2016-07-14] MEDS: ENOXAPARIN 40 MG/0.4 ML SYR SC SCH (08:37)
--- NOTE | 2016-07-14 09:05 | SOAPPROG ---
SOAP Progress Note Assessment/Plan: Assessment: COMFORTABLE TODAY/ TOLERATING CLEARS/ ABD SOFT/ +FLATUS, -BM/ TOLERATING NG CLAMPED Plan:2-WAY/ ADVANCE DIET IF OK 07/14/16 09:03 Objective: Vital Signs Temp Pulse Resp BP Pulse Ox 37.0 C 79 14 138/82 H 95 07/14/16 08:50 07/14/16 08:50 07/14/16 08:50 07/14/16 08:50 07/14/16 08:50 Laboratory Results 07/14/16 04:53 07/13/16 04:49 07/13/16 07/14/16 07/15/16 05:59 05:59 05:59 Intake Total 400 1657 Output Total 500 1450 Balance -100 207 ICD10 Worksheet Patient Problems: Problems Problem Status Onset SBO (small bowel obstruction) Acute Bipolar affective disorder, current episode depression Active Cannabis abuse Active Drug induced mood disorder Active Abdominal pain Acute Acute encephalopathy Acute Alcohol dependence Acute Alcohol intoxication Acute Alcohol withdrawal Acute Alcohol withdrawal delirium, acute, hyperactive Acute Chronic abdominal pain Acute Delirium tremens Acute Dyspnea Acute Pneumatosis intestinalis Acute Seizure Acute Small bowel obstruction Acute Status epilepticus Acute Superior mesenteric artery thrombosis Acute
[2016-07-14] MEDS: HYDROmorphONE/DILAUDID 2 MG TAB PO PRN ×4 (12:43→23:48)
--- NOTE | 2016-07-14 15:38 | HOSPPROG ---
Hospitalist Progress Note Assessment/Plan: # Acute SBO- pt with complicated abdominal history including perforation and abscess from diverticulitis Pt with flatus this am and good bowel sounds- abd xray (personally reviewed and interpreted) persistent air fluid levels oxygen saturations 93% on RA - clear liquids - cont NGT clamped - small bowel follow through ordered - cont prn pain meds - cont IVF while NPO # HTN - slightly elevated - restart Lisinopril # Bipolar - restart bupropion # proph - lovenox # diet - clears with NGT # dispo - > 2MN as needs careful monitoring of SBO I have discussed the case with surgery will get SBFT today Subjective: tolerated PO with meds Objective: Vital Signs Temp Pulse Resp BP Pulse Ox 36.9 C 85 14 142/109 H 98 07/14/16 12:18 07/14/16 12:18 07/14/16 12:18 07/14/16 12:18 07/14/16 12:18 Laboratory Results 07/14/16 04:53 07/13/16 04:49 07/13/16 07/14/16 07/15/16 05:59 05:59 05:59 Intake Total 400 1657 Output Total 500 1450 Balance -100 207 - Physical Exam Constitutional: appears nourished Eyes: anicteric sclera Ears, Nose, Mouth, Throat: moist mucous membranes Cardiovascular: regular rate and rhythym Respiratory: no respiratory distress Gastrointestinal: normoactive bowel sounds, tenderness, No guarding, No rebound Genitourinary: no bladder fullness Skin: warm, normal color Musculoskeletal: No asymmetric calves Neurologic: AAOx3 Psychiatric: interacting appropriately, not anxious Lymph, Heme, Immunologic: no cervical LAD ICD10 Worksheet Patient Problems: Problems Problem Status Onset SBO (small bowel obstruction) Acute Bipolar affective disorder, current episode depression Active Cannabis abuse Active Drug induced mood disorder Active Abdominal pain Acute Acute encephalopathy Acute Alcohol dependence Acute Alcohol intoxication Acute Alcohol withdrawal Acute Alcohol withdrawal delirium, acute, hyperactive Acute Chronic abdominal pain Acute Delirium tremens Acute Dyspnea Acute Pneumatosis intestinalis Acute Seizure Acute Small bowel obstruction Acute Status epilepticus Acute Superior mesenteric artery thrombosis Acute
[2016-07-14] MEDS: LISINOPRIL 10 MG TAB PO SCH (16:35)
[2016-07-14] MEDS: buPROPion XL 150 MG TAB PO SCH (16:35)
[2016-07-14] MEDS: NICOTINE 21 MG/24 HR PATCH TD SCH (21:24)
[2016-07-14 22:42] VITALS: RESP 16; TEMP 97.7
[2016-07-15] MEDS: NS 1,000 ML IV SCH (02:27)
[2016-07-15 05:20] LABS: ANION GAP 7 mEq/L (8-16); CALCIUM 8.9 mg/dL (8.5-10.4); CARBON DIOXIDE 24 mEq/l (22-31); CHLORIDE 107 mEq/L (97-110); CREATININE 0.8 mg/dL (0.7-1.3); GLOMERULAR FILTRATION RATE > 60; GLUCOSE 68 mg/dL (70-100); POTASSIUM 3.7 mEq/L (3.5-5.2); SODIUM 138 mEq/L (134-144)
[2016-07-15] MEDS: LORazepam 2 MG/ML INJ IVP PRN (07:32)
[2016-07-15] MEDS: HYDROmorphONE/DILAUDID 2 MG TAB PO PRN (07:34)
[2016-07-15] MEDS: ENOXAPARIN 40 MG/0.4 ML SYR SC SCH ×2 (07:36→07:37)
[2016-07-15] MEDS: LISINOPRIL 10 MG TAB PO SCH (07:47)
[2016-07-15] MEDS: buPROPion XL 150 MG TAB PO SCH (07:47)
[2016-07-15] MEDS: NICOTINE 21 MG/24 HR PATCH TD SCH (07:50)
[2016-07-15 08:53] VITALS: BP 136/90; PULSE 95; O2SAT 94
--- NOTE | 2016-07-15 10:26 | SOAPPROG ---
SOAP Progress Note Assessment/Plan: Assessment: 55yo male with complicated abdominal history. admitted for obstruction. Doing well, removed NG tube, wants to eat, minimal pain PE very comfortable abdomen nondistended, very soft, nontender Small bowel follow thru demonstrates bowel distension on left side, suspect this is patient's normal anatomy after multiple surgeries. Plan: saw pt linwood Rosas ok to d/c from our perspective. 07/15/16 10:24 Objective: Vital Signs Temp Pulse Resp BP Pulse Ox 36.5 C 95 16 136/90 H 94 07/15/16 08:00 07/15/16 08:00 07/15/16 08:00 07/15/16 08:00 07/15/16 08:00 Laboratory Results 07/14/16 04:53 07/15/16 04:43 07/14/16 07/15/16 07/16/16 05:59 05:59 05:59 Intake Total 1657 550 Output Total 1450 600 Balance 207 -50 ICD10 Worksheet Patient Problems: Problems Problem Status Onset SBO (small bowel obstruction) Acute Bipolar affective disorder, current episode depression Active Cannabis abuse Active Drug induced mood disorder Active Abdominal pain Acute Acute encephalopathy Acute Alcohol dependence Acute Alcohol intoxication Acute Alcohol withdrawal Acute Alcohol withdrawal delirium, acute, hyperactive Acute Chronic abdominal pain Acute Delirium tremens Acute Dyspnea Acute Pneumatosis intestinalis Acute Seizure Acute Small bowel obstruction Acute Status epilepticus Acute Superior mesenteric artery thrombosis Acute
--- NOTE | 2016-07-15 16:12 | GDS ---
[f rep st] DISCHARGE SUMMARY DISCHARGE DIAGNOSES: Include. 1. Acute recurrent small-bowel obstruction. 2. Hypertension. 3. Bipolar disorder. 4. History of diverticulitis with perforated bowel and pelvic abscess. 5. History of superior mesenteric artery occlusion with stenting. 6. Small bowel resection secondary to perforation. 7. Alcoholism in remission. HISTORY OF PRESENT ILLNESS: A 55-year-old male with a very complicated intraabdominal history who p resents with increasing abdominal pain. For details of patient's initial presentation, please see t he history and physical dated 07/12/2016. CONSULTATIVE SERVICES: Include General Surgery, Dr. Rosas. PROCEDURES: Include a small-bowel follow-through on 07/14/2016, which showed normal small bowel tra nsit time with mild jejunal dilatation. HOSPITAL COURSE: By issue. 1. Acute, recurrent small-bowel obstruction. Patient was medically treated with an NG tube, IV flu id resuscitation, IV pain medicines. The patient was slowly uptitrated on his oral regimen __food until tolerating a regular diet. There was between the patient's plain abdominal i maging which showed air-fluid levels in the patient's small bowel follow-through. General surgery s uspects that likely his general films will remain abnormal ongoing and emphasized if representing wi th abdominal pain we need to look at the clinical picture in addition to potentially small bowel fol low-through. Patient was provided with p.r.n. pain medications and is to follow with Dr. Rosas next week in the clinic. 2. History of superior mesenteric artery occlusion with stenting. 3. Hypertension. Patient remained normotensive on his lisinopril. 4. Bipolar disorder. Patient was continued on his Wellbutrin without alteration. MEDICATIONS AT THE TIME OF DISPOSITION: Please reference med rec printed on 07/15/2016. FOLLOWUP APPOINTMENTS: Include with Dr. Rosas post disposition next week. PENDING STUDIES: At the time of this dictation are none. TIME SPENT: I spent greater than 30 minutes in the planning and coordination of this discharge. /[id number]/MODL
== END 2016-07-15 11:57 | disposition home or self-care (01) | DRG 390 ==
LOC: F3E 20:59
PROVIDERS: ADMIT Internal Medicine; ATTEND Internal Medicine
DX: K56.60 Unspecified intestinal obstruction (principal); I10 Essential (primary) hypertension; F31.9 Bipolar disorder, unspecified; F10.20 Alcohol dependence, uncomplicated; Z72.0 Tobacco use
CPT/HCPCS: 96374; J1170; J1650; J2060; J2405

== ENCOUNTER 2016-07-19 18:50 | Emergency (ER) | payer OTHER ==
[2016-07-19 18:59] VITALS: RESP 18; O2SAT 96
[2016-07-19] MEDS ORDERED: IBUPROFEN 600 MG TAB PO ONE (20:25)
[2016-07-19] MEDS ORDERED: OXYCODONE/APAP 5/325 TAB PO ONE (20:25)
--- NOTE | 2016-07-19 20:25 | EDPHY ---
H & P Time Seen by Provider: 07/19/16 18:58 HPI/ROS: CHIEF COMPLAINT: Left knee pain HISTORY OF PRESENT ILLNESS: 55-year-old male presents emergency department complaining of medial left knee pain after his son's dog ran into his anterior knee while at the dog park. Patient reports this happened 6 hours prior to arrival and his pain has been increasing, worse with ambulation. Patient denies previous injury to this knee, no numbness or tingling in his leg. He denies other complaints. Smoking Status: Current every day smoker Physical Exam: GEN: Awake, alert, oriented, no acute distress RESP: nl resp effort MSK: Left knee with medial tenderness to palpation, positive valgus stress. No lateral tenderness, negative anterior drawer, negative constance. No swelling , full range of motion, 2+ pedal pulses SKIN: No break in skin Constitutional: Initial Vital Signs Temperature (C) 36.5 C 07/19/16 18:57 Heart Rate 90 07/19/16 18:57 Respiratory Rate 18 07/19/16 18:57 Blood Pressure 129/87 H 07/19/16 18:57 O2 Sat (%) 96 07/19/16 18:57 O2 Delivery Mode Room Air Allergies/Adverse Reactions: No Known Allergies Allergy (Verified 07/19/16 18:57) Home Medications: Medication Instructions Recorded Herbals/Supplements -Info Only 1 ea PO DAILY 07/12/16 Ibuprofen [Motrin (*)] 400 mg PO DAILY PRN 07/12/16 Lisinopril [Zestril 10 mg (*)] 10 mg PO DAILY 07/12/16 buPROPion XL [Wellbutrin 150mg XL] 150 mg PO DAILY 07/12/16 HYDROmorphone HCL [Dilaudid 2 mg 2 mg PO Q4HRS PRN #0 tab 07/15/16 (*)] MDM/Departure - MDM Imaging Results: Imaging Impressions Knee X-Ray 07/19/16 19:31 Impression: No acute osseous findings. Imaging: I viewed and interpreted images myself Medications Given: Discontinued Medications Ibuprofen (Motrin) 600 mg PO EDNOW ONE Stop: 07/19/16 20:26 Last Admin: 07/19/16 20:37 Dose: 600 mg Oxycodone/Acetaminophen (Percocet 5/325) 2 tab PO EDNOW ONE Stop: 07/19/16 20:26 Last Admin: 07/19/16 20:36 Dose: 2 tab - Depart Disposition: Home, Routine, Self-Care Clinical Impression: Sprain of medial collateral ligament of left knee Qualifiers: Encounter type: initial encounter Qualified Code(s): S83.412A - Sprain of medial collateral ligament of left knee, initial encounter Condition: Good Instructions: Knee Sprain (ED) Additional Instructions: Rest, ice, elevate, wear knee immobilizer and use crutches as needed for ambulation. Follow up with orthopedist at 1st available appointment, call to schedule this appointment. Take 600 mg of ibuprofen every 8 hours with food for pain. Return to the emergency department for any numbness or tingling to your leg, discoloration of your leg, any new symptoms or concerns. Referrals: Fahad Urban MD [Medical Doctor] - As per Instructions (Orthopedist on-call)
[2016-07-19 21:12] VITALS: BP 118/79; PULSE 72; TEMP 98.1
== END 2016-07-19 21:11 | disposition home or self-care (01) ==
DX: S83.412A Sprain of medial collateral ligament of left knee, initial encounter (principal); F17.200 Nicotine dependence, unspecified, uncomplicated; W54.1XXA Struck by dog, initial encounter; Y92.830 Public park as the place of occurrence of the external cause
CPT/HCPCS: 73564; 99283; L1830

== ENCOUNTER 2016-07-30 03:03 | Emergency (ER) | payer OTHER ==
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
[2016-07-30 03:14] VITALS: BP 135/105; PULSE 105; RESP 16; TEMP 98.1; O2SAT 96
== END 2016-07-30 03:20 | disposition left against medical advice (07) ==
LOC: EDUNIT#
DX: F10.120 Alcohol abuse with intoxication, uncomplicated (principal); I10 Essential (primary) hypertension; J44.9 Chronic obstructive pulmonary disease, unspecified; F17.200 Nicotine dependence, unspecified, uncomplicated

== ENCOUNTER 2016-08-04 01:08 | Emergency (ER) | payer OTHER ==
[2016-08-04] MEDS ORDERED: LORazepam 2 MG/ML INJ IVP ONE (01:58)
[2016-08-04] MEDS ORDERED: LORazepam 1 MG TAB ONE ×2 (02:04→02:06)
[2016-08-04] MEDS ORDERED: LORazepam 1 MG TAB PO ONE ×2 (02:12→12:22)
[2016-08-04 02:13] LABS: ALANINE AMINOTRANSFERASE 43 IU/L (21-72); ALBUMIN 4.3 g/dL (3.5-5.0); ALKALINE PHOSPHATASE 93 IU/L (38-126); ANION GAP 15 mEq/L (8-16); ASPARTATE AMINOTRANSFERASE 57 IU/L (17-59); BILIRUBIN,TOTAL 0.7 mg/dL (0.1-1.4); CALCIUM 8.6 mg/dL (8.5-10.4); CARBON DIOXIDE 21 mEq/l (22-31); CHLORIDE 102 mEq/L (97-110); CREATININE 0.7 mg/dL (0.7-1.3); GLOMERULAR FILTRATION RATE > 60; GLUCOSE 117 mg/dL (70-100); POTASSIUM 3.4 mEq/L (3.5-5.2); SODIUM 138 mEq/L (134-144)
[2016-08-04 02:17] LABS: % IMMATURE GRANULYOCYTES 0.2 % (0.0-1.1); ABSOLUTE IMMATURE GRANULOCYTES 0.01 10^3/uL (0.00-0.10); ADD DIFF? NO; ADD MORPH? NO; ADD SCAN? NO; ATYPICAL LYMPHOCYTE FLAG 10 (0-99); FRAGMENT RBC FLAG 0 (0-99); HEMATOCRIT 40.3 % (40.0-51.0); HEMOGLOBIN 14.3 g/dL (13.7-17.5); LEFT SHIFT FLG 0 (0-99); LIPEMIA HEMOLYSIS FLAG 90 (0-99); MEAN CELL HEMOGLOBIN 28.9 pg (27.9-34.1); MEAN CELL HEMOGLOBIN CONCENTR. 35.5 g/dL (32.4-36.7); MEAN CELL VOLUME 81.4 fL (81.5-99.8); MEAN PLATELET VOLUME 8.9 fL (8.7-11.7); PLATELET CLUMPS FLAG 0 (0-99); PLATELET COUNT 171 10^3/uL (150-400); RED BLOOD CELL COUNT 4.95 10^6/uL (4.40-6.38)
[2016-08-04 02:23] LABS: ETHANOL SERUM 457 mg/dL (0-10)
[2016-08-04] MEDS ORDERED: chlordiazePOXIDE 25 MG CAP ONE (03:45)
[2016-08-04] MEDS ORDERED: chlordiazePOXIDE 25 MG CAP PO ONE ×3 (03:48→11:43)
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
[2016-08-04 07:52] VITALS: RESP 16
[2016-08-04 14:40] VITALS: BP 135/76; PULSE 90; TEMP 97.9; O2SAT 95
== END 2016-08-04 14:40 | disposition home or self-care (01) ==
LOC: EDUNIT#
DX: F10.920 Alcohol use, unspecified with intoxication, uncomplicated (principal); F17.200 Nicotine dependence, unspecified, uncomplicated; I10 Essential (primary) hypertension; J44.9 Chronic obstructive pulmonary disease, unspecified
CPT/HCPCS: 80305; G0480

== ENCOUNTER 2016-09-28 08:40 | Emergency (ER) | payer OTHER ==
--- NOTE | 2016-09-28 08:43 | EDPHY ---
H & P Time Seen by Provider: 09/28/16 08:43 HPI/ROS: CHIEF COMPLAINT: Shortness of breath HISTORY OF PRESENT ILLNESS: Patient arrives by EMS with complaints of increasing shortness of breath the last 7 hours. He says he has a history of emphysema but his breathing has been worse. He continues to smoke and recently started drinking as of this past weekend. Says he has nonproductive cough but no associated chest pain. Breathing is worse lying flat with exertion. Feels like previous COPD exacerbations. No hemoptysis. REVIEW OF SYSTEMS: Eye: no change in vision ENT: no sore throat Cardiac: no chest pain or syncope Pulmonary: HPI Abdomen: no vomiting, diarrhea, abdominal pain Musculoskeletal: Chronic back and neck pain unchanged Skin: no rash Neuro: no headache Constitutional: no fever : no urinary symptoms A comprehensive 10 point review of systems is otherwise negative aside from elements mentioned in the history of present illness. PAST MEDICAL HISTORY: Previous emergency department from July as well as H&P dated 07/12/2016 personally reviewed. Includes alcoholism, SMA dissection with stenting, diverticulitis with subsequent bowel obstruction with resection, bipolar, hypertension, COPD, chronic back and neck pain. Social history: Smoker, recent alcohol. Has been sober but relapsed this past weekend. General Appearance: Alert and conversant, cooperative. Eyes: No scleral icterus. ENT, Mouth: Normal mucous membranes. Respiratory: Patient has faint bilateral expiratory wheezes but is able to speak in full sentences. Cardiovascular: Regular rate and rhythm. Gastrointestinal: Abdomen is soft and non tender. Neurological: Alert and oriented x3. Slightly slurred speech. Face symmetric, normal movement and sensation in all extremities. Skin: Warm and dry, no rashes. Musculoskeletal: No peripheral edema and no joint swelling. No calf tenderness. Psychiatric: Not agitated. Emergency Department course/MDM: DuoNeb, chest x-ray, EKG. 915: Still quite intoxicated, having difficulty following instructions to hold the nebulizer in his mouth, moving a little bit more air and still some slight diffuse wheezing, oral prednisone and albuterol neb. Think it is most likely that he has exacerbation of his COPD, as well as some hypoventilation from his alcohol intoxication. I think that pneumonia or pneumothorax, pulmonary embolism, anemia, acidosis, ACS are all unlikely. 1047: Ambulatory, not ataxic, clinically sober, feels better and wants to be discharged. Room air oxygen saturation 93%. Smoking Status: Current every day smoker Constitutional: Initial Vital Signs Temperature (C) 36.4 C 09/28/16 08:47 Heart Rate 114 H 09/28/16 08:47 Respiratory Rate 18 09/28/16 08:47 O2 Sat (%) 94 09/28/16 08:47 O2 Delivery Mode Room Air Allergies/Adverse Reactions: No Known Allergies Allergy (Verified 08/04/16 01:21) Home Medications: Medication Instructions Recorded Lisinopril [Zestril 10 mg (*)] 10 mg PO DAILY 07/12/16 buPROPion XL [Wellbutrin 150mg XL] 150 mg PO DAILY 07/12/16 Albuterol Hfa Anes Only [Proair 2 puffs IH QID #1 mdi 09/28/16 Hfa Icu (*)] Baclofen 09/28/16 Chantix 09/28/16 LYRICA 09/28/16 predniSONE [prednisone 20mg (RX)] 20 mg PO Q12 #15 tab 09/28/16 Medical Decision Making - Diagnostics EKG Interpretation: 12-lead EKG interpreted by me; official reading is in trace master. My interpretation is sinus tachycardia with posterior axis, no acute ST changes. Imaging Results: Imaging Impressions Chest X-Ray 09/28/16 08:52 Impression: Mild perihilar thickening with no focal infiltrate, or substantial change from 02/09/2016. Chest x-ray personally interpreted, negative for infiltrate or other abnormality. Imaging: I viewed and interpreted images myself Differential Diagnosis: Differential diagnosis considered for shortness of breath including but not limited to pulmonary infectious process, COPD, asthma, pulmonary embolus and congestive heart failure. - Data Points Medications Given: Discontinued Medications Albuterol (Proventil Neb) 3 ml IH EDNOW ONE Stop: 09/28/16 09:19 Last Admin: 09/28/16 09:27 Dose: 3 ml Albuterol/Ipratropium (Duoneb) 3 ml IH EDNOW ONE Stop: 09/28/16 08:53 Last Admin: 09/28/16 08:56 Dose: 3 ml Prednisone (Prednisone) 60 mg PO EDNOW ONE Stop: 09/28/16 09:19 Last Admin: 09/28/16 09:27 Dose: 60 mg Departure - Departure Disposition: Home, Routine, Self-Care Clinical Impression: Chronic obstructive pulmonary disease with acute exacerbation Condition: Good Instructions: COPD (Chronic Obstructive Pulmonary Disease) (ED) Referrals: NONE *PRIMARY CARE P,. [Primary Care Provider] - As per Instructions Davina Eagle MD [Medical Doctor] - As per Instructions Prescriptions: Albuterol Hfa Anes Only [Proair Hfa Icu (*)] 2 puffs IH QID #1 mdi predniSONE [prednisone 20mg (RX)] 20 mg PO Q12 #15 tab
[2016-09-28 08:48] VITALS: RESP 18; TEMP 97.5; O2SAT 94
[2016-09-28] MEDS ORDERED: IPRATROPIUM/ALBUTEROL 3 ML DEYVIAL IH ONE (08:52)
[2016-09-28] MEDS ORDERED: ALBUTEROL 3 ML DEYVIAL IH ONE (09:18)
[2016-09-28] MEDS ORDERED: predniSONE 20 MG TAB PO ONE (09:18)
--- NOTE | 2016-09-28 09:20 | CPEKG ---
Heart Rate: 107 RR Interval: 561 P-R Interval: 132 QRSD Interval: 100 QT Interval: 360 QTC Interval: 481 P Munith: 76 QRS Munith: 230 T Wave Munith: 69 EKG Severity - BORDERLINE ECG - EKG Impression: SINUS TACHYCARDIA EKG Impression: MARKEDLY POSTERIOR QRS AXIS EKG Impression: BORDERLINE PROLONGED QT INTERVAL Electronically Signed By: Oswaldo Reich 28-Sep-2016 09:20:36
[2016-09-28 10:48] VITALS: BP 107/89; PULSE 109
== END 2016-09-28 10:50 | disposition home or self-care (01) ==
LOC: EDUNIT#
DX: J44.1 Chronic obstructive pulmonary disease with (acute) exacerbation (principal); I10 Essential (primary) hypertension; F17.200 Nicotine dependence, unspecified, uncomplicated

== ENCOUNTER 2016-10-01 19:01 | Emergency (ER) | payer OTHER ==
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
[2016-10-01] MEDS ORDERED: CHLORDIAZEPOXIDE 25MG PREPK#6 BTL TAKEHOME ONE (19:06)
[2016-10-01] MEDS ORDERED: chlordiazePOXIDE 25 MG CAP PO ONE (19:06)
[2016-10-01] MEDS ORDERED: chlordiazePOXIDE 25 MG CAP ONE (19:06)
[2016-10-01 19:14] VITALS: RESP 16; TEMP 98.1; O2SAT 96
[2016-10-01 19:53] VITALS: BP 121/68; PULSE 93
== END 2016-10-01 19:43 | disposition home or self-care (01) ==
LOC: EDUNIT#
DX: F10.920 Alcohol use, unspecified with intoxication, uncomplicated (principal); I10 Essential (primary) hypertension; J44.9 Chronic obstructive pulmonary disease, unspecified; F17.200 Nicotine dependence, unspecified, uncomplicated

== ENCOUNTER 2016-10-06 16:27 | Emergency (ER) | payer OTHER ==
[2016-10-06 16:35] VITALS: BP 89/57; PULSE 100; RESP 16; TEMP 98.2; O2SAT 95
[2016-10-06] MEDS ORDERED: CHLORDIAZEPOXIDE 25MG PREPK#6 BTL TAKEHOME ONE (16:38)
--- NOTE | 2016-10-06 16:38 | EDPHY ---
H & P Smoking Status: Current every day smoker Time Seen by Provider: 10/06/16 16:33 HPI/ROS: CHIEF COMPLAINT: "I need help HISTORY OF PRESENT ILLNESS: 56-year-old male history of alcoholism, familiar to emergency department staff, called 911 requesting assistance from alcohol withdrawal and detoxification. Denies hallucination. Denies nausea or vomiting. Denies chest pain. Denies abdominal pain. Denies dyspnea. REVIEW OF SYSTEMS: A ten point review of systems was performed and is negative with the exception of the items mentioned in the HPI PAST MEDICAL & SURGICAL HISTORY: alcoholism. SOCIAL HISTORY:last drink of alcohol last evening PHYSICAL EXAM (Prior to examination, patient consented to physical exam, hands were washed and my usual and customary physical exam procedures followed) 1) GENERAL: Well-developed, well-nourished, alert and oriented. Appears to be in no acute distress. 2) HEAD: Normocephalic, atraumatic 3) HEENT: Sclera anicteric. 4) NECK: Full range of motion, no meningeal signs. 5) LUNGS: Clear auscultation bilaterally, no wheezes, no rhonchi, no retractions. 6) HEART: Regular rate and rhythm, no murmur, no heave, no gallop. 7) ABDOMEN: No guarding, no rebound, no focal tenderness, negative McBurney's, negative Bey's, negative Rovsing's, negative peritoneal sign, 8) MUSCULOSKELETAL: Moving all extremities, no focal areas of tenderness, no obvious trauma. No peripheral edema or discoloration. 9) BACK: No CVA tenderness, no midline vertebral tenderness, no fluctuance, no step-off, no obvious trauma, no visual or palpable abnormality. 10) SKIN: No rash, no petechiae. 11) Psychiatric: Patient is oriented X 3, there is no agitation. Anxious, agitated, tremulous DIFFERENTIAL DIAGNOSIS: in no particular include but limited to acute alcohol withdrawal, delirium tremens, depression (Felicia,Myrna Micaela) Constitutional: Initial Vital Signs Temperature (C) 36.8 C 10/06/16 16:34 Heart Rate 100 10/06/16 16:34 Respiratory Rate 16 10/06/16 16:34 Blood Pressure 89/57 L 10/06/16 16:34 O2 Sat (%) 95 10/06/16 16:34 O2 Delivery Mode Room Air Allergies/Adverse Reactions: No Known Allergies Allergy (Verified 08/04/16 01:21) Home Medications: Medication Instructions Recorded Lisinopril [Zestril 10 mg (*)] 10 mg PO DAILY 07/12/16 buPROPion XL [Wellbutrin 150mg XL] 150 mg PO DAILY 07/12/16 Albuterol Hfa Anes Only [Proair 2 puffs IH QID #1 mdi 09/28/16 Hfa Icu (*)] Baclofen 09/28/16 Chantix 09/28/16 LYRICA 09/28/16 predniSONE [prednisone 20mg (RX)] 20 mg PO Q12 #15 tab 09/28/16 MDM/Departure - MDM Medications Given: Discontinued Medications Chlordiazepoxide (Librium 25 Mg Prepack#6) 1 btl TAKEHOME EDNOW ONE Stop: 10/06/16 16:39 Last Admin: 10/06/16 16:59 Dose: 1 btl Lorazepam (Ativan) 2 mg PO EDNOW ONE Stop: 10/06/16 16:48 Last Admin: 10/06/16 16:52 Dose: 2 mg ED Course/Re-evaluation: I did not see this patient while he was in the emergency department. However his care was discussed with the PA while the patient was in the department. I agree with treatment plan and management (Zafar Hernandes) [facility]. Doubt delirium tremens. No evidence of trauma. He has been given a dose of Librium in the ER will be given Librium prepack to take to the [facility]. (Myrna Duarte) - Depart Disposition: Home, Routine, Self-Care Clinical Impression: Alcohol withdrawal Qualifiers: Complication of substance-induced condition: uncomplicated Qualified Code(s): F10.230 - Alcohol dependence with withdrawal, uncomplicated Condition: Good Instructions: Chlordiazepoxide (By mouth), Alcohol Withdrawal (ED) Referrals: [facility] [Outside] - 1 day without fail
[2016-10-06] MEDS ORDERED: LORazepam 1 MG TAB PO ONE (16:47)
== END 2016-10-06 17:15 | disposition home or self-care (01) ==
LOC: EDUNIT#
DX: F10.230 Alcohol dependence with withdrawal, uncomplicated (principal); F17.200 Nicotine dependence, unspecified, uncomplicated

== ENCOUNTER 2016-10-07 20:21 | Emergency (ER) | payer OTHER ==
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
[2016-10-07 20:38] VITALS: TEMP 97.9
[2016-10-07 21:43] VITALS: BP 154/74; PULSE 71; RESP 16; O2SAT 92
== END 2016-10-07 21:43 | disposition home or self-care (01) ==
LOC: EDUNIT#
DX: F10.129 Alcohol abuse with intoxication, unspecified (principal); F17.200 Nicotine dependence, unspecified, uncomplicated; I10 Essential (primary) hypertension; J44.9 Chronic obstructive pulmonary disease, unspecified

== ENCOUNTER 2016-10-09 09:47 | Emergency (ER) | payer OTHER ==
[2016-10-09] MEDS ORDERED: ONDANSETRON 4 MG/2 ML VIAL ONE (10:06)
[2016-10-09] MEDS ORDERED: ONDANSETRON 4 MG/2 ML VIAL IVP ONE ×3 (10:18→10:21)
[2016-10-09] MEDS ORDERED: NS 1,000 ML IV ONE ×2 (10:18)
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
[2016-10-09] MEDS ORDERED: LORazepam 2 MG/ML INJ IVP ONE (10:21)
[2016-10-09 10:29] LABS: % IMMATURE GRANULYOCYTES 0.4 % (0.0-1.1); ABSOLUTE IMMATURE GRANULOCYTES 0.03 10^3/uL (0.00-0.10); ADD DIFF? NO; ADD MORPH? NO; ADD SCAN? NO; ATYPICAL LYMPHOCYTE FLAG 0 (0-99); FRAGMENT RBC FLAG 0 (0-99); HEMOGLOBIN 14.3 g/dL (13.7-17.5); LEFT SHIFT FLG 0 (0-99); LIPEMIA HEMOLYSIS FLAG 90 (0-99); MEAN CELL HEMOGLOBIN 29.2 pg (27.9-34.1); MEAN CELL HEMOGLOBIN CONCENTR. 35.8 g/dL (32.4-36.7); MEAN CELL VOLUME 81.6 fL (81.5-99.8); MEAN PLATELET VOLUME 8.2 fL (8.7-11.7); PLATELET CLUMPS FLAG 10 (0-99); PLATELET COUNT 180 10^3/uL (150-400); RED CELL DISTRIBUTION WIDTH 14.2 % (11.5-15.2)
[2016-10-09 10:40] LABS: INR 0.95 (0.83-1.16); PROTIME(PATIENT) 12.6 SEC (12.0-15.0)
[2016-10-09 10:41] LABS: APTT 26.5 SEC (23.0-38.0)
[2016-10-09 10:53] LABS: ALANINE AMINOTRANSFERASE 68 IU/L (21-72); ALBUMIN 4.1 g/dL (3.5-5.0); ALKALINE PHOSPHATASE 133 IU/L (38-126); ANION GAP 13 mEq/L (8-16); ASPARTATE AMINOTRANSFERASE 69 IU/L (17-59); BILIRUBIN,TOTAL 2.5 mg/dL (0.1-1.4); BILIRUBIN-CONJUGATED 0.4 mg/dL (0.0-0.5); BILIRUBIN-UNCONJUGATED 2.1 mg/dL (0.0-1.1); CALCIUM 9.1 mg/dL (8.5-10.4); CARBON DIOXIDE 22 mEq/l (22-31); CHLORIDE 92 mEq/L (97-110); CREATININE 0.7 mg/dL (0.7-1.3); GLOMERULAR FILTRATION RATE > 60; GLUCOSE 150 mg/dL (70-100); POTASSIUM 3.7 mEq/L (3.5-5.2); SODIUM 127 mEq/L (134-144); TOTAL PROTEIN 6.9 g/dL (6.3-8.2)
[2016-10-09] MEDS ORDERED: IOPAMIDOL (ISOVUE-300) 100 ML BTL ONE (12:09)
[2016-10-09] MEDS ORDERED: LORazepam 1 MG TAB PO ONE (13:25)
[2016-10-09 13:35] VITALS: BP 137/79; PULSE 96; RESP 14; TEMP 98.6; O2SAT 94
[2016-10-09 13:38] LABS: COLOR YELLOW; LEUKOCYTE ESTERASE,URINE NEGATIVE (NEGATIVE); NITRITE,URINE NEGATIVE (NEGATIVE)
== END 2016-10-09 13:40 | disposition home or self-care (01) ==
DX: R10.84 Generalized abdominal pain (principal); I10 Essential (primary) hypertension; J44.9 Chronic obstructive pulmonary disease, unspecified; F17.200 Nicotine dependence, unspecified, uncomplicated; E86.9 Volume depletion, unspecified
CPT/HCPCS: 74000; 74177; 96361; 96374; 96375; 99285; J2060; J2405; Q9967

== ENCOUNTER 2016-10-11 22:38 | Emergency (ER) | payer OTHER ==
[2016-10-11 22:42] VITALS: RESP 16; TEMP 97.5
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
[2016-10-11] MEDS ORDERED: CHLORDIAZEPOXIDE 25MG PREPK#6 BTL TAKEHOME ONE (23:47)
[2016-10-11 23:59] VITALS: BP 158/98; PULSE 101; O2SAT 97
== END 2016-10-11 23:59 | disposition home or self-care (01) ==
DX: F10.239 Alcohol dependence with withdrawal, unspecified (principal); F17.200 Nicotine dependence, unspecified, uncomplicated; J44.9 Chronic obstructive pulmonary disease, unspecified; I10 Essential (primary) hypertension

== ENCOUNTER → 2016-12-10 | Outpatient (CLI) | payer OTHER | LOC: FIMAGING 11:14 | PROVIDERS: ATTEND Internal Medicine | DX: M54.2 Cervicalgia (principal) ==

== ENCOUNTER → 2017-02-07 | Outpatient (CLI) | payer OTHER | LOC: FIMAGING 12:29 | PROVIDERS: ATTEND Internal Medicine Pulmonary Disease | DX: J40 Bronchitis, not specified as acute or chronic (principal); J43.2 Centrilobular emphysema ==

== ENCOUNTER 2017-05-31 01:45 | Emergency (ER) | payer OTHER ==
[2017-05-31] MEDS ORDERED: LORazepam 2 MG/ML INJ IVP ONE (01:51)
[2017-05-31] MEDS ORDERED: ZIPRASIDONE MESYLATE 20 MG VIAL IM ONE ×2 (01:51→01:52)
[2017-05-31] MEDS ORDERED: NS 1,000 ML IV ONE ×3 (02:00→04:00)
[2017-05-31] MEDS ORDERED: KETAMINE 200 MG/20 ML VIAL ONE (02:07)
[2017-05-31 02:15] LABS: PLATELET COUNT 243 10^3/uL (150-400)
[2017-05-31] MEDS ORDERED: fentaNYL 100 MCG/2 ML INJ ONE (02:24)
[2017-05-31 02:26] LABS: CREATINE KINASE 106 IU/L (0-224)
[2017-05-31] MEDS ORDERED: fentaNYL 100 MCG/2 ML INJ IVP ONE ×3 (02:27→03:12)
[2017-05-31] MEDS: KETAMINE 200 MG/20 ML VIAL IVP ONE ×2 (02:28→03:03)
[2017-05-31] MEDS ORDERED: KETAMINE 500 MG/10 ML VIAL IVP ONE (02:50)
[2017-05-31] MEDS ORDERED: HALOPERIDOL LACT 5 MG/ML INJ IVP ONE (02:54)
[2017-05-31] MEDS ORDERED: DEXMEDETOMIDINE HCL 400 MCG in NS 100 ML IV SCH (04:00)
[2017-05-31] MEDS ORDERED: LORazepam 2 MG/ML INJ ONE (05:48)
--- NOTE | 2017-05-31 06:13 | EDPHY ---
H & P Stated Complaint: possible OD, ETOH Time Seen by Provider: 05/31/17 01:52 HPI/ROS: HPI The patient presents with altered mental status, brought in by paramedics. They were called to an apartment where the patient was with a friend. He had taken OxyContin 10-15 mg, and then used Narcan because he did not like the way it was making him feel. He had also been drinking alcohol. The patient said he was feeling badly, felt agitated and not himself. They administered Versed 5 mg IV without any improvement in his symptoms. REVIEW OF SYSTEMS Constitutional: No fever, no chills. Eyes: No discharge. ENT: No sore throat. Cardiovascular: No chest pain, no palpitations. Respiratory: No cough, no shortness of breath. Gastrointestinal: No abdominal pain, no vomiting. Genitourinary: No hematuria. Musculoskeletal: No back pain. Skin: No rashes. Neurological: No headache. PMHx: History of bowel obstruction with multiple visits for this Soc Hx: Multiple visits for alcohol intoxication PHYSICAL General Appearance: Agitated, thrashing about Eyes: Pupils equal and round no pallor or injection ENT, Mouth: Mucous membranes moist Respiratory: There are no retractions, lungs are clear to auscultation Cardiovascular: Tachycardic rate and regular rhythm Gastrointestinal: Abdomen is soft and non-tender, no masses, bowel sounds normal Neurological: Alert, unable to answer questions, thrashing his arms and legs Skin: Warm and dry, no rashes Musculoskeletal: Neck is supple non tender Extremities: symmetrical, full range of motion Psychiatric: Agitated Source: Patient, EMS Exam Limitations: Clinical condition, Intoxication - Personal History Current Tetanus/Diphtheria Vaccine: Yes Current Tetanus Diphtheria and Acellular Pertussis (TDAP): Yes Tetanus Vaccine Date: 2012 - Medical/Surgical History Hx Asthma: No Hx Chronic Respiratory Disease: No Hx Diabetes: No Hx Cardiac Disease: No Hx Renal Disease: No Hx Cirrhosis: No Hx Alcoholism: Yes Hx HIV/AIDS: No Hx Splenectomy or Spleen Trauma: No Other PMH: etoh - Social History Smoking Status: Current every day smoker Constitutional: Initial Vital Signs Temperature (C) 36.6 C 05/31/17 01:49 Heart Rate 107 H 05/31/17 01:49 Respiratory Rate 16 05/31/17 01:49 O2 Sat (%) 95 05/31/17 01:49 O2 Delivery Mode Nasal Cannula O2 (L/minute) 2 Allergies/Adverse Reactions: No Known Allergies Allergy (Verified 05/31/17 01:48) Home Medications: Medication Instructions Recorded Lisinopril [Zestril 10 mg (*)] 10 mg PO DAILY 07/12/16 buPROPion XL [Wellbutrin 150mg XL] 150 mg PO DAILY 07/12/16 Albuterol Hfa Anes Only [Proair 2 puffs IH QID #1 mdi 09/28/16 Hfa Icu (*)] Ranitidine HCl [Zantac] 150 mg PO DAILY #30 tablet 10/09/16 Medical Decision Making Differential Diagnosis: This is a 56-year-old man with history of alcohol abuse, who presents brought in by ambulance with altered mental status associated with agitation. Apparently, the patient used OxyContin, followed by Narcan, and has been drinking alcohol. I met the paramedics at the bedside to obtain their report. Patient had received Versed 5 mg IV. He is still extremely agitated thrashing about despite being in restraints. Initially the patient is given Ativan 2 mg IV with no effect. He was then given Geodon 20 mg IM with no improvement in his symptoms. He was then given ketamine 100 mg without any improvement. He was given fentanyl 100 mcg with slight improvement in his agitation. He was given additional ketamine 200 mg. He was still thrashing about, saying that he could not control his arms or legs and he needed to pee. Given the risk of the patient to himself and others and inability for him to control his movements, decision was made to start Precedex bolus followed by drip. Eventually this improved his symptoms. It was unclear if the ketamine was contributing to his agitation because of an emergence reaction. After about 4 hr, we were able to titrate the Precedex drip and the patient was feeling better, able to walk without difficulty and felt less agitated. He tells us that he took OxyContin 210 mg tabs for his neck pain. He says he did not like the way it made him feel so then he took Narcan intranasally. He denies any SI or HI. He has never use Narcan before. He will be able to be discharged home. He lives in an apartment. He could be suffering from affective Narcan as the cause of his symptoms. I also would consider methamphetamine intoxication given his extreme agitation. I doubt any intracranial abnormality given that he was able to clear while in the emergency department. Critical Care Time: CRITICAL CARE Critical care time spent by me, Dr. Adan, exclusively with this patient was 120 minutes, exclusive of PA time and exclusive of procedures. The organ system at risk was neuro and I gave IV fluids, multiple sedative medications, started a Precedex drip to prevent worsening of the patients condition. - Data Points Laboratory Results: Laboratory Results 05/31/17 02:00 05/31/17 02:00 05/31/17 05/31/17 05/31/17 04:00 02:00 02:00 WBC 6.72 10^3/uL 10^3/uL (3.80-9.50) RBC 4.53 10^6/uL 10^6/uL (4.40-6.38) Hgb 13.1 g/dL L g/dL (13.7-17.5) Hct 36.8 % L % (40.0-51.0) MCV 81.2 fL L fL (81.5-99.8) MCH 28.9 pg pg (27.9-34.1) MCHC 35.6 g/dL g/dL (32.4-36.7) RDW 14.5 % % (11.5-15.2) Plt Count 243 10^3/uL 10^3/uL (150-400) MPV 9.0 fL fL (8.7-11.7) Neut % (Auto) 45.1 % % (39.3-74.2) Lymph % (Auto) 38.8 % % (15.0-45.0) [place] % (Auto) 9.1 % % (4.5-13.0) Eos % (Auto) 6.0 % % (0.6-7.6) Baso % (Auto) 0.7 % % (0.3-1.7) Nucleat RBC Rel Count 0.0 % % (0.0-0.2) Absolute Neuts (auto) 3.03 10^3/uL 10^3/uL (1.70-6.50) Absolute Lymphs (auto) 2.61 10^3/uL 10^3/uL (1.00-3.00) Absolute Monos (auto) 0.61 10^3/uL 10^3/uL (0.30-0.80) Absolute Eos (auto) 0.40 10^3/uL 10^3/uL (0.03-0.40) Absolute Basos (auto) 0.05 10^3/uL 10^3/uL (0.02-0.10) Absolute Nucleated RBC 0.00 10^3/uL 10^3/uL (0-0.01) Immature Gran % 0.3 % % (0.0-1.1) Immature Gran # 0.02 10^3/uL 10^3/uL (0.00-0.10) Sodium 136 mEq/L mEq/L (135-145) Potassium 4.4 mEq/L mEq/L (3.5-5.2) Chloride 100 mEq/L mEq/L (97-110) Carbon Dioxide 22 mEq/l mEq/l (22-31) Anion Gap 14 mEq/L mEq/L (8-16) BUN 11 mg/dL mg/dL (7-23) Creatinine 0.7 mg/dL mg/dL (0.7-1.3) Estimated GFR > 60 Glucose 70 mg/dL mg/dL (70-100) Calcium 8.9 mg/dL mg/dL (8.5-10.4) Total Bilirubin 0.4 mg/dL mg/dL (0.1-1.4) AST 21 IU/L IU/L (17-59) ALT 36 IU/L IU/L (21-72) Alkaline Phosphatase 94 IU/L IU/L (38-126) Creatine Kinase 106 IU/L IU/L (0-224) Total Protein 6.5 g/dL g/dL (6.3-8.2) Albumin 4.0 g/dL g/dL (3.5-5.0) Salicylates < 1.0 mg/dL L mg/dL (2.0-20.0) Urine Opiates Screen NEGATIVE (NEGATIVE) Acetaminophen < 10 mcg/mL L mcg/mL (10-30) Urine Barbiturates NEGATIVE (NEGATIVE) Ur Phencyclidine Scrn NEGATIVE (NEGATIVE) Ur Amphetamine Screen NEGATIVE (NEGATIVE) U Benzodiazepines Scrn NEGATIVE (NEGATIVE) Urine Cocaine Screen NEGATIVE (NEGATIVE) U Marijuana (THC) Screen NON-NEGATIVE H (NEGATIVE) Ethyl Alcohol 12 mg/dL H mg/dL (0-10) Medications Given: Discontinued Medications Fentanyl (Sublimaze) 50 mcg IVP EDNOW ONE Stop: 05/31/17 02:28 Last Admin: 05/31/17 02:28 Dose: 50 mcg Fentanyl (Sublimaze) 50 mcg IVP EDNOW ONE Stop: 05/31/17 02:51 Last Admin: 05/31/17 03:03 Dose: 50 mcg Fentanyl (Sublimaze) 100 mcg IVP EDNOW ONE Stop: 05/31/17 03:13 Last Admin: 05/31/17 03:13 Dose: 100 mcg Haloperidol Lactate (Haldol Injection) 5 mg IVP EDNOW ONE Stop: 05/31/17 02:55 Last Admin: 05/31/17 02:30 Dose: 5 mg Dexmedetomidine HCl 400 mcg/ (Sodium Chloride) 104 mls @ 0 mls/hr IV CONT VERNON; Titrate PRN Reason: Protocol Stop: 05/31/17 06:00 Last Admin: 05/31/17 04:10 Dose: 104 mls Sodium Chloride (Ns) 1,000 mls @ 0 mls/hr IV EDNOW ONE; Wide Open PRN Reason: Protocol Stop: 05/31/17 02:01 Last Admin: 05/31/17 02:00 Dose: 1,000 mls Sodium Chloride (Ns) 1,000 mls @ 0 mls/hr IV EDNOW ONE; Wide Open PRN Reason: Protocol Stop: 05/31/17 03:01 Last Admin: 05/31/17 04:00 Dose: 1,000 mls Sodium Chloride (Ns) 1,000 mls @ 0 mls/hr IV EDNOW ONE; Wide Open PRN Reason: Protocol Stop: 05/31/17 04:01 Last Admin: 05/31/17 03:00 Dose: 1,000 mls Ketamine HCl (Ketamine) 100 mg IVP EDNOW ONE Stop: 05/31/17 02:28 Last Admin: 05/31/17 03:03 Dose: 100 mg Ketamine HCl (Ketamine) 100 mg IVP EDNOW ONE Stop: 05/31/17 02:51 Last Admin: 05/31/17 03:03 Dose: Not Given Lorazepam (Ativan Injection) 2 mg IVP EDNOW ONE Stop: 05/31/17 01:52 Last Admin: 05/31/17 01:50 Dose: 2 mg Ziprasidone (Geodon) 20 mg IM EDNOW ONE Stop: 05/31/17 01:53 Last Admin: 05/31/17 01:53 Dose: 20 mg Departure - Departure Disposition: Home, Routine, Self-Care Clinical Impression: Polysubstance abuse, Agitation requiring sedation protocol Altered mental status Qualifiers: Altered mental status type: disorientation Qualified Code(s): R41.0 - Disorientation, unspecified Condition: Good Instructions: Procedural Sedation (ED) Referrals: [facility],. [Clinic] - As per Instructions
[2017-05-31 06:22] VITALS: RESP 18; O2SAT 96
[2017-05-31 08:25] VITALS: BP 116/78; PULSE 90; TEMP 98.4
== END 2017-05-31 08:22 | disposition home or self-care (01) ==
LOC: EDUNIT#
DX: R41.0 Disorientation, unspecified (principal); F17.200 Nicotine dependence, unspecified, uncomplicated; R45.1 Restlessness and agitation; E86.9 Volume depletion, unspecified; F19.10 Other psychoactive substance abuse, uncomplicated
CPT/HCPCS: 96361; 96372; 96374; 96375; 96376; 99291; 99292; J1630; J2060; J3010; J3486; 80305; G0480

== ENCOUNTER 2017-06-17 13:24 | Emergency (ER) | payer OTHER ==
--- NOTE | 2017-06-17 13:26 | EDPHY ---
HPI/HX/ROS/PE/MDM Narrative: CHIEF COMPLAINT: Alcohol intoxication HPI: The patient is a 56 y/o male arriving via EMS for alcohol intoxication. For the past 5 days he has tried to detox from alcohol, but drank alcohol 2 hours ago. EMS found this patient [place] an [place] station after he called 911, as he wanted to go to a detox facility. While en route to the emergency department he had stable vital signs. He admits to drinking 15-20 alcoholic drinks (vodka and beer ) a day. Denies headache, chills, chest pain, shortness of breath, abdominal pain, urinary complaints, fever. REVIEW OF SYSTEMS: Aside from elements discussed in the HPI, a comprehensive 10-point review of systems was reviewed and is negative. PMH: Alcoholism SOCIAL HISTORY: Lives in [place], single, unemployed PHYSICAL EXAM: General: Patient is alert, in no acute distress. ENT: Eyes are normal to inspection. ENT inspection normal. Neck: Normal inspection. Full range of motion. Respiratory: No respiratory distress. Breath sounds normal bilaterally. Cardiovascular: Regular rate and rhythm. Strong peripheral pulses. Normal cap refill. Abdomen: The abdomen is nontender to palpation. There are no peritoneal signs. There are normal bowel sounds. Back: Normal to inspection. No tenderness to palpation. Skin: Normal color. No rash. Warm and dry. Extremities: Normal appearance. Full range of motion. Neuro: Oriented x3. Normal motor function. Normal sensory function. ED Course: 1324: I met EMS upon arrival 1417: I spoke with case management about the placement of this patient to the [facility] [place] or a different detox center. 1509: I spoke with case management, she reports that [facility] will admit this patient based on his blood alcohol level. Ethanol serum ordered. 1603: Patient's ethanol serum is 358, which is too high for [facility] to admit him. [facility]. Return precautions provided; patient is comfortable with this plan. MDM: This patient presents for desired alcohol detox. However, his RAJAT is too elevated to be accepted to the facility of his choice. There are no signs of clinical alcohol withdrawal. The patient will be transferred to the [facility]. - Data Points Laboratory Results: 06/17/17 15:15 Ethyl Alcohol 358 mg/dL H mg/dL (0-10) Medications Given: Discontinued Medications Chlordiazepoxide HCl (Librium) 25 mg PO EDNOW ONE Stop: 06/17/17 13:50 Last Admin: 06/17/17 13:54 Dose: 25 mg General Time Seen by Provider: 06/17/17 13:26 Initial Vital Signs: Initial Vital Signs Temperature (C) 36.9 C 06/17/17 13:30 Heart Rate 95 06/17/17 13:30 Respiratory Rate 18 06/17/17 13:30 Blood Pressure 120/94 H 06/17/17 13:30 O2 Sat (%) 98 06/17/17 13:30 O2 Delivery Mode Room Air Allergies/Adverse Reactions: No Known Allergies Allergy (Verified 06/17/17 13:30) Home Medications: Medication Instructions Recorded Lisinopril [Zestril 10 mg (*)] 10 mg PO DAILY 07/12/16 buPROPion XL [Wellbutrin 150mg XL] 150 mg PO DAILY 07/12/16 Albuterol Hfa Anes Only [Proair 2 puffs IH QID #1 mdi 09/28/16 Hfa Icu (*)] Ranitidine HCl [Zantac] 150 mg PO DAILY #30 tablet 10/09/16 Departure - Departure Disposition: Home, Routine, Self-Care Clinical Impression: Alcohol intoxication Qualifiers: Complication of substance-induced condition: uncomplicated Qualified Code(s): F10.920 - Alcohol use, unspecified with intoxication, uncomplicated Alcohol dependence Qualifiers: Substance use status: with intoxication Complication of substance-induced condition: uncomplicated Qualified Code(s): F10.220 - Alcohol dependence with intoxication, uncomplicated Condition: Good Instructions: Alcohol Intoxication (ED), Abuse of Alcohol (ED), Alcohol Withdrawal (ED) Additional Instructions: Please refrain from abusing alcohol. Return to the emergency department immediately for fever, vomiting, confusion, headache, abdominal pain or other worsening of condition. Followup with your primary care physician within 72 hours for reevaluation. Referrals: [facility] [Outside] - As per Instructions Report Scribed for: Lui Simon Report Scribed by: Divine Cunningham Date of Report: 06/17/17 Time of Report: 13:27 Physician Review and Approval Statement: Portions of this note were transcribed by an ED scribe. I personally performed the history, physical exam, and medical decision making; and confirm the accuracy of the information in the transcribed note.
[2017-06-17] MEDS ORDERED: chlordiazePOXIDE 25 MG CAP PO ONE (13:49)
[2017-06-17 16:11] VITALS: BP 112/66
--- NOTE | 2017-06-17 17:48 | ASMTCAGE ---
CAGE Do you feel you ought to Answers: Yes cut down on your drinking or drug use? Do people annoy you by Answers: Yes criticizing your drinking or drug use? Do you feel guilty about Answers: Yes your drinking or drug use? Do you drink or use drugs Answers: Yes first thing in the morning (Eye Under Trimmer)? Additional Comments Pt requesting assistance with detox placement. See CM notes. Date Signed: 06/17/2017 05:48 PM Electronically Signed By:Leeann Ramírez RN
--- NOTE | 2017-06-17 18:18 | ASMTCMCOM ---
CM Note CM Note Notes: Pt presented to the Emergency Department via EMS requesting detox for alcoholism. Pt called 911 from an [place] bus [place]. Pt is well known to this Emergency Department. Pt is single, lives in [place] and is unemployed. Asked to see pt by Dr. Simon for assistance with detox placement. Met with pt to discuss discharge needs. Pt requesting to go to detox for alcohol withdrawal. Pt refusing to go to the [facility]. Pt states he has been there before and "they were very unhelpful and mean to him." Pt requesting to "go to the detox associated with the hospital in [place]." Pt believes it is "[facility] [place]." Pt states he "called [facility] on Monday and tried to get in at that time." Pt states they told him to "go to the [facility] Emergency Department for evaluation and assistance." Pt states he called 911 and asked to come to [facility]. Call placed to [facility] in [place] , spoke with Malou. Per Malou, there is no record of the pt calling and requesting help. Per Malou, [facility] does not have any beds available at this time. Malou stated the "pt is welcome to go to the [facility] Emergency Department in a day or two to try again." "There may be beds available at that time and he may be able to get into the detox program." Update provided to the pt. Pt states he "wants help now." Pt requesting to go "anywhere that can help." CM suggested the [facility] again, pt continued to refuse. Call placed to [facility] , spoke with Lena. Per Lena, they only have one bed available, but "would need a certain blood alcohol level" to accept the pt. Spoke with pt - pt interested in medical detox (vs rehab). Pt states he only has his [employer] Medicare Advantage plan, no Medicaid. Update provided to Lena ([facility] does not accept Medicaid). Update provided to Dr. Simon, blood alcohol level requested for placement. Labs obtained - level 358. Call placed to Lena , update provided. Per Lena, unable to accept pt with such a high level, cutoff is 250. Lena encouraged pt to sober up and to try again in a day or two. Update provided to pt. Call placed to [facility] detox program , no beds available. Call placed to [facility] detox in [place] , no answer. Offered to call [facility] or [facility] detox for pt, but pt declined due to distance from [place]. Updates provided to pt, SERGIO Marvin and Dr. Simon. Pt encouraged to sober up tonight and to try [facility] or [facility] as a walk-in on Sunday 06/18 or Monday 06/19. Pt reports having "a half gallon of vodka in his fridge at home and a couple of beers." Encouraged pt to pour alcohol down the drain and to sober up. Pt crying and upset about placement issues. Support and reassurance provided. Pt agreed to try [facility] or [facility] again Monday or Monday. CM available for any further issues or concerns. Date Signed: 06/17/2017 06:17 PM Electronically Signed By:Leeann Ramírez RN
== END 2017-06-17 16:10 | disposition home or self-care (01) ==
LOC: EDBD → EDUNIT#
DX: F10.220 Alcohol dependence with intoxication, uncomplicated (principal)
CPT/HCPCS: G0480

== ENCOUNTER 2017-08-03 19:08 | Emergency (ER) | payer OTHER ==
[2017-08-03] MEDS ORDERED: NS 1,000 ML IV ONE (19:43)
[2017-08-03] MEDS ORDERED: HYOSCYAMINE SULFATE 0.125 MG TAB PO ONE (19:59)
[2017-08-03] MEDS ORDERED: LIDOCAINE 2% VISCOUS 15 ML UDCUP PO ONE (19:59)
[2017-08-03] MEDS ORDERED: FAMOTIDINE 20 MG/NACL 50 ML IV ONE (19:59)
[2017-08-03] MEDS ORDERED: ONDANSETRON 4 MG/2 ML VIAL IVP ONE (19:59)
[2017-08-03] MEDS ORDERED: MAG HYDROX/AL HYDROX/SIMETH 30 ML UDCUP PO ONE (19:59)
--- NOTE | 2017-08-03 19:59 | EDPHY ---
H & P Time Seen by Provider: 08/03/17 19:29 HPI/ROS: HPI Abdominal pain, same as my bowel perforation pain. 56-year-old male on foot. He states that he developed mid and epigastric abdominal pain starting approximately 2 hr ago. Describes this as sharp and burning with some radiation up into his lower chest. States it is the same pain he felt when he was diagnosed with a bowel perforation approximately 2 years ago. He had this surgically treated by Dr. Mekhi Rosas at that time. Describes the pain as relatively sudden in onset. ROS: Constitutional: No fever, no chills. No weakness. Eyes: No discharge. No changes in vision. ENT: No sore throat. No nasal congestion or rhinorrhea. Respiratory: No cough. No shortness of breath. Cardiac: As above, no palpitations. Gastrointestinal: As above, no vomiting, no diarrhea. Genitourinary: No hematuria. No dysuria or increased frequency with urination. Musculoskeletal: No back pain. No neck pain. No myalgias or arthralgias. Skin: No rashes. Neurological: No headache. No focal weakness or altered sensation. Past medical history: Alcohol abuse, bowel perforation, bowel resection, hypertension, fibromyalgia, degenerative disc disease of the neck, depression. Social history: Nonsmoker. Lives in a private residence. As above. Physical Exam: General Appearance: Alert, he appears relatively comfortable. He is not in distress. This patient is responding to questions appropriately and in full sentences. This patient appears well-hydrated and well-nourished. Eyes: Pupils equal and round no pallor or injection. No lid edema, erythema or injection. Respiratory: There are no retractions, lungs are clear to auscultation with good air movement bilaterally. Cardiovascular: Regular rate and rhythm. No murmur. Gastrointestinal: Abdomen is soft with mid abdominal tenderness and epigastric tenderness on palpation, no masses, bowel sounds normal. No focal tenderness at McBurney's point. No Bey sign. Neurological: Motor sensory function is grossly intact. Cranial nerves are normal. Gait is normal. Skin: Warm and dry, no rashes. Musculoskeletal: Neck is supple and nontender. Extremities are symmetrical. All joints range without pain or impingement. Psychiatric: No agitation. No depression. Database: EKG: EKG time is 8:05 p.m.; EKG shows a narrow complex normal sinus rhythm with a ventricular rate of 89. The FL, QRS, QT intervals are within normal limits. There are no ST-T wave changes indicative of ischemic or injury pattern. No evidence of right heart strain. Interpreted by me. Imaging: CT abdomen and pelvis with IV contrast: This study is essentially unchanged from his previous study. There is no evidence of perforation or acute pathology. Results discussed with staff radiologist Dr. Sandro Ghosh. Please see details above. Right upper quadrant ultrasound: Negative. Results were discussed with staff radiologist Dr. Sandro Ghosh. Procedures: Emergency department course: Vital signs reviewed and are unremarkable. IV was placed. He was placed on a surveillance system monitor. He was started on IV normal saline with 1 L to be given over the next hour. He was initially given 20 mg of IV Pepcid. EKG obtained and reviewed by myself. This patient does not appear to be in significant pain. However, he states that this is the same way he presented to the emergency department 2 years ago when he was diagnosed with a bowel perforation then had to be surgically repaired. 9:20 p.m., patient re-evaluated. Resting comfortably at this time. He is asymptomatic. Results of CT scan and blood work discussed with him. Elevation of LFTs reviewed. Need for ultrasound discussed. 10:20 p.m., patient re-evaluated. Ultrasound discussed. He again is asymptomatic. He is requesting discharge. I discussed observation for admission. He does not want to do this. The patient competently engages in shared decision making. They demonstrate capacitance to make decisions. He will follow up with his primary care physician and have his liver function tests repeated early next week. I have instructed him not to drink alcohol. I have ordered a hepatitis panel on him. He understands his follow-up. Return to emergency department precautions reviewed with him. All of his questions were answered. He was discharged in good condition. Differential Diagnosis: The differential diagnosis on this patient includes but is not limited to ulcerative versus non ulcerative gastritis, perforated peptic ulcer, pancreatitis, hepatitis. Acute coronary syndrome unlikely. This represents a partial list of diagnoses considered. These considerations are based on history , physical exam, past history, reassessment and diagnostic testing. Smoking Status: Current every day smoker Constitutional: Initial Vital Signs Temperature (C) 36.5 C 08/03/17 19:13 Heart Rate 95 08/03/17 19:13 Respiratory Rate 16 08/03/17 19:13 Blood Pressure 107/54 L 08/03/17 19:13 O2 Sat (%) 95 08/03/17 19:13 O2 Delivery Mode Room Air Allergies/Adverse Reactions: No Known Allergies Allergy (Verified 06/17/17 13:30) Home Medications: Medication Instructions Recorded Lisinopril [Zestril 10 mg (*)] 10 mg PO DAILY 07/12/16 buPROPion XL [Wellbutrin 150mg XL] 150 mg PO DAILY 07/12/16 Albuterol Hfa Anes Only [Proair 2 puffs IH QID #1 mdi 09/28/16 Hfa Icu (*)] LYRICA 08/03/17 Percocet 5-325 mg Tablet 08/03/17 Medical Decision Making - Diagnostics Imaging Results: Imaging Impressions Abdomen CT 08/03/17 19:43 Impression: 1. Remote postoperative change with a patulous-appearing jejunum near some surgical anastomotic clips, similar to the study of 10/09/2016. 2. Pronounced constipation with distal colonic diverticulosis. Because of underdistention of the distal colon, some inflammatory wall thickening cannot be excluded. There is no evidence of pneumoperitoneum, or localized fluid collection. 3. Chronically-occluded SMA stent. 4. Sequela of old granulomatous disease. 5. Mild prostatomegaly. Findings were discussed with Rocky Gale MD at 21:12, on 08/03/2017. Abdomen Ultrasound 08/03/17 21:20 Impression: There is no evidence of cholelithiasis or cholecystitis. The common bile duct is borderline-prominent, however relatively unchanged from previous CT imaging in September 2016. Findings were discussed with Rocky Gale MD at 22:11, on 08/03/2017. - Data Points Laboratory Results: Laboratory Results 08/03/17 19:58 08/03/17 19:58 08/03/17 08/03/17 08/03/17 20:22 20:07 19:58 WBC RBC Hgb Hct MCV MCH MCHC RDW Plt Count MPV Neut % (Auto) Lymph % (Auto) [place] % (Auto) Eos % (Auto) Baso % (Auto) Nucleat RBC Rel Count Absolute Neuts (auto) Absolute Lymphs (auto) Absolute Monos (auto) Absolute Eos (auto) Absolute Basos (auto) Absolute Nucleated RBC Immature Gran % Immature Gran # RBC/WBC/PLT Morphology Platelet Estimate Sodium Potassium Chloride Carbon Dioxide Anion Gap BUN Creatinine POC Creatinine 0.9 mg/dL mg/dL (0.7-1.3) Estimated GFR Glucose Calcium Total Bilirubin Conjugated Bilirubin Unconjugated Bilirubin AST ALT Alkaline Phosphatase POC Troponin I 0.00 ng/mL ng/mL (0.00-0.08) Total Protein Albumin Lipase Acetaminophen < 10 mcg/mL L mcg/mL (10-30) 08/03/17 08/03/17 19:58 19:58 WBC 8.90 10^3/uL 10^3/uL (3.80-9.50) RBC 4.69 10^6/uL 10^6/uL (4.40-6.38) Hgb 13.8 g/dL g/dL (13.7-17.5) Hct 39.9 % L % (40.0-51.0) MCV 85.1 fL fL (81.5-99.8) MCH 29.4 pg pg (27.9-34.1) MCHC 34.6 g/dL g/dL (32.4-36.7) RDW 14.5 % % (11.5-15.2) Plt Count 259 10^3/uL 10^3/uL (150-400) MPV 9.3 fL fL (8.7-11.7) Neut % (Auto) 61.1 % % (39.3-74.2) Lymph % (Auto) 26.1 % % (15.0-45.0) [place] % (Auto) 8.2 % % (4.5-13.0) Eos % (Auto) 3.6 % % (0.6-7.6) Baso % (Auto) 0.8 % % (0.3-1.7) Nucleat RBC Rel Count 0.0 % % (0.0-0.2) Absolute Neuts (auto) 5.44 10^3/uL 10^3/uL (1.70-6.50) Absolute Lymphs (auto) 2.32 10^3/uL 10^3/uL (1.00-3.00) Absolute Monos (auto) 0.73 10^3/uL 10^3/uL (0.30-0.80) Absolute Eos (auto) 0.32 10^3/uL 10^3/uL (0.03-0.40) Absolute Basos (auto) 0.07 10^3/uL 10^3/uL (0.02-0.10) Absolute Nucleated RBC 0.00 10^3/uL 10^3/uL (0-0.01) Immature Gran % 0.2 % % (0.0-1.1) Immature Gran # 0.02 10^3/uL 10^3/uL (0.00-0.10) RBC/WBC/PLT Morphology TNP Platelet Estimate ADEQUATE (ADEQ) Sodium 132 mEq/L L mEq/L (135-145) Potassium 4.2 mEq/L mEq/L (3.3-5.0) Chloride 99 mEq/L mEq/L (97-110) Carbon Dioxide 22 mEq/l mEq/l (22-31) Anion Gap 11 mEq/L mEq/L (8-16) BUN 17 mg/dL mg/dL (7-23) Creatinine 0.8 mg/dL mg/dL (0.7-1.3) POC Creatinine Estimated GFR > 60 Glucose 167 mg/dL H mg/dL (70-100) Calcium 8.8 mg/dL mg/dL (8.5-10.4) Total Bilirubin 0.9 mg/dL mg/dL (0.1-1.4) Conjugated Bilirubin 0.6 mg/dL H mg/dL (0.0-0.5) Unconjugated Bilirubin 0.3 mg/dL mg/dL (0.0-1.1) AST 345 IU/L H IU/L (17-59) ALT 689 IU/L H IU/L (21-72) Alkaline Phosphatase 130 IU/L H IU/L (38-126) POC Troponin I Total Protein 6.7 g/dL g/dL (6.3-8.2) Albumin 3.9 g/dL g/dL (3.5-5.0) Lipase 27 IU/L IU/L (23-300) Acetaminophen Medications Given: Discontinued Medications Al Hydroxide/Mg Hydroxide (Maalox Susp) 30 ml PO ONCE ONE Stop: 08/03/17 20:00 Last Admin: 08/03/17 20:19 Dose: Not Given Hyoscyamine Sulfate (Levsin, Hyomax-Sl) 0.25 mg PO ONCE ONE Stop: 08/03/17 20:00 Last Admin: 08/03/17 20:19 Dose: Not Given Sodium Chloride (Ns) 1,000 mls @ 0 mls/hr IV EDNOW ONE; Wide Open PRN Reason: Protocol Stop: 08/03/17 19:44 Last Admin: 08/03/17 20:01 Dose: 1,000 mls Famotidine/Sodium Chloride (Pepcid 20 Mg (Premix)) 50 mls @ 200 mls/hr IV EDNOW ONE Stop: 08/03/17 20:13 Last Admin: 08/03/17 20:15 Dose: 50 mls Lidocaine (Lidocaine 2% Viscous) 15 ml PO ONCE ONE Stop: 08/03/17 20:00 Last Admin: 08/03/17 20:19 Dose: Not Given Ondansetron HCl (Zofran) 4 mg IVP EDNOW ONE Stop: 08/03/17 20:00 Last Admin: 08/03/17 20:16 Dose: 4 mg Point of Care Test Results: Chemistry 08/03/17 08/03/17 20:22 20:07 POC Creatinine 0.9 mg/dL mg/dL (0.7-1.3) POC Troponin I 0.00 ng/mL ng/mL (0.00-0.08) Departure - Departure Disposition: Home, Routine, Self-Care Clinical Impression: Abdominal pain, Transaminitis Condition: Good Instructions: Acute Abdominal Pain (ED) Additional Instructions: Read and follow provided instructions. Do not drink alcohol. Do not take Tylenol. Follow-up with your primary care physician, Dr. Scott Pedersen, as scheduled next week. Have your liver function tests repeated at that time. I have also ordered a hepatitis panel on you a nose results will be available for Dr. Pedersen to follow up on an discussed with you. Return to the emergency department for worsening abdominal pain, chest pain, vomiting, fever or other serious concerns. Referrals: Scott Pedersen MD [Primary Care Provider] - As per Instructions
--- NOTE | 2017-08-03 20:08 | CPEKG ---
Heart Rate: 89 RR Interval: 674 P-R Interval: 152 QRSD Interval: 116 QT Interval: 372 QTC Interval: 453 P [place]: 68 QRS [place]: 69 T Wave [place]: 48 EKG Severity - ABNORMAL ECG - EKG Impression: SINUS RHYTHM EKG Impression: INCOMPLETE RIGHT BUNDLE BRANCH BLOCK Electronically Signed By: Rocky Gale 03-Aug-2017 20:40:25
[2017-08-03 20:14] LABS: PLATELET COUNT 259 10^3/uL (150-400)
[2017-08-03] MEDS ORDERED: IOPAMIDOL (ISOVUE-300) 100 ML BTL ONE (20:25)
[2017-08-03 22:13] VITALS: BP 106/76
[2017-08-03 23:14] LABS: HEPATITIS B SURFACE ANTIGEN NEGATIVE (NEGATIVE)
[2017-08-03 23:20] LABS: HEPATITIS A ANTIBODY IGM (BCH) NEGATIVE (NEGATIVE); HEPATITIS B CORE AB IGM NEGATIVE (NEGATIVE)
[2017-08-03 23:30] LABS: HEPATITIS C ANTIBODY TOTAL NEGATIVE (NEGATIVE)
== END 2017-08-03 22:33 | disposition home or self-care (01) ==
DX: R74.0 Nonspecific elevation of levels of transaminase and lactic acid dehydrogenase [LDH] (principal); E86.9 Volume depletion, unspecified; I10 Essential (primary) hypertension; F17.200 Nicotine dependence, unspecified, uncomplicated
CPT/HCPCS: 74177; 76705; 93005; J2405; Q9967; 82565-PO; 84484-PO; G0472; G0480

== ENCOUNTER 2018-04-08 19:27 | Emergency (ER) | payer OTHER ==
--- NOTE | 2018-04-08 19:43 | EDPHY ---
H & P Stated Complaint: requesting detox Time Seen by Provider: 04/08/18 19:34 HPI/ROS: CHIEF COMPLAINT: Intoxicated HISTORY OF PRESENT ILLNESS: The patient presents to the ED with alcohol intoxication requesting outpatient opioid detox. The patient [place] and was informed that he would not be able to go there as they do not offer narcotic detox. The patient reports drinking alcohol this evening. The patient denies any acute medical complaints. He denies suicidal or homicidal ideation. REVIEW OF SYSTEMS: A comprehensive 10 point review of systems is otherwise negative aside from elements mentioned in the history of present illness. Source: Patient, EMS - Personal History Current Tetanus Diphtheria and Acellular Pertussis (TDAP): Yes Tetanus Vaccine Date: 2012 - Medical/Surgical History Hx Asthma: No Hx Chronic Respiratory Disease: No Hx Diabetes: No Hx Cardiac Disease: No Hx Renal Disease: No Hx Cirrhosis: No Hx Alcoholism: Yes Hx HIV/AIDS: No Hx Splenectomy or Spleen Trauma: No Other PMH: etoh, perforated bowel, bowel resection, HTN, fibromyalgia, carpal tunnel, degenerative disk disease in neck, depression - Social History Smoking Status: Current every day smoker - Physical Exam Exam: General Appearance: Alert, no distress, intoxicated Eyes: Pupils equal and round no pallor or injection ENT, Mouth: Mucous membranes moist Respiratory: There are no retractions, lungs are clear to auscultation Cardiovascular: Regular rate and rhythm Gastrointestinal: Abdomen is soft and nontender, no masses, bowel sounds normal Neurological: 5/5 strength all 4 extremities Skin: Warm and dry, no rashes Musculoskeletal: Neck is supple nontender Extremities: symmetrical, full range of motion Psychiatric: Patient is oriented X 3, there is no agitation Constitutional: Initial Vital Signs Temperature (C) 36.6 C 04/08/18 19:32 Heart Rate 74 04/08/18 19:32 Respiratory Rate 16 04/08/18 19:32 Blood Pressure 134/74 H 04/08/18 19:32 O2 Sat (%) 96 04/08/18 19:32 O2 Delivery Mode Room Air Allergies/Adverse Reactions: No Known Allergies Allergy (Verified 04/08/18 19:31) Home Medications: Medication Instructions Recorded Lisinopril [Zestril 10 mg (*)] 10 mg PO DAILY 07/12/16 buPROPion XL [Wellbutrin 150mg XL] 150 mg PO DAILY 07/12/16 Albuterol Hfa Anes Only [Proair 2 puffs IH QID #1 mdi 09/28/16 Hfa Icu (*)] LYRICA 08/03/17 Percocet 5-325 mg Tablet 08/03/17 Medical Decision Making ED Course/Re-evaluation: I spoke with the [facility] who confirmed that the patient would not be able to come there for narcotic detox as they do not offer that service. The [facility] which he a has declined. The patient is intoxicated. He will be placed on a [facility] hold secondary to his intoxication. The patient will be discharged from the emergency department when he is sober. Departure - Departure Disposition: Home, Routine, Self-Care Clinical Impression: Alcohol intoxication Condition: Good Instructions: Alcohol Intoxication (ED) Additional Instructions: [facility] and [facility] are the only local resource we have to offer you for alcohol and narcotic dependence. Referrals: [facility] [Outside] - As per Instructions [facility] [Clinic] - As per Instructions
[2018-04-08 20:40] VITALS: BP 132/73
== END 2018-04-08 20:46 | disposition home or self-care (01) ==
LOC: EDUNIT#
DX: F10.920 Alcohol use, unspecified with intoxication, uncomplicated (principal); I10 Essential (primary) hypertension; F17.200 Nicotine dependence, unspecified, uncomplicated

== ENCOUNTER 2018-04-10 17:17 | Emergency (ER) | payer OTHER ==
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
[2018-04-10 18:28] VITALS: BP 139/78
== END 2018-04-10 18:31 | disposition home or self-care (01) ==
LOC: EDUNIT#
DX: S62.102A Fracture of unspecified carpal bone, left wrist, initial encounter for closed fracture (principal); S00.01XA Abrasion of scalp, initial encounter; F10.920 Alcohol use, unspecified with intoxication, uncomplicated; I10 Essential (primary) hypertension; W01.0XXA Fall on same level from slipping, tripping and stumbling without subsequent striking against object, initial encounter; Y92.9 Unspecified place or not applicable; Y99.9 Unspecified external cause status; Y93.9 Activity, unspecified

== ENCOUNTER → 2018-06-29 | Outpatient (CLI) | payer OTHER ==
[~2018-06-29] MED LIST: IOPAMIDOL (ISOVUE-300) 100 ML BTL ONE
== END ==
LOC: FIMAGING 14:50
PROVIDERS: ATTEND Surgery
DX: K59.00 Constipation, unspecified (principal); K57.30 Diverticulosis of large intestine without perforation or abscess without bleeding
CPT/HCPCS: 74177; Q9967